=== PATIENT | male | born 1935 | race African-American/Black ===

== ENCOUNTER 2016-07-08 00:08 | Inpatient (IN) ==
--- NOTE | 2016-07-08 01:02 | EKG Report ---
Stationary ECG Study [facility] ER Test Date: 07/08/2016 1:01:09 AM Pat Name: ZANE ALCALA Department: Room: Gender: M Outsole Tacker: KERRIE : 1935 Requested by: Damien Brown Order Number: [id number] Reading MD: SOPHY FITZGERALD Intervals [place] Rate: 59 P: 62 MS: 193 QRS: 12 QRSD: 97 T: 40 QT: 424 QTc: 424 Interpretive Statements SINUS RHYTHM MINIMAL VOLTAGE CRITERIA FOR LVH, CONSIDER NORMAL VARIANT NONSPECIFIC T-WAVE ABNORMALITY Electronically Signed On 07-08-16 08:04:18 REPRESENTATIVE PERSONAL SERVICE by SOPHY FITZGERALD [email or web address]
--- NOTE | 2016-07-08 01:10 | Emergency Department Note ---
Jayy Stock Brooke, am scribing for, and in the presence of, Damien Tavares MD 00 :47. Anusha Stock Charles R, MD, personally performed the services described in this documentation, ascribed by Stephanie Hope in my presence, and it is both accurate and complete . Arrival - Arrival Chief Complaint: Non-Specific Stated Complaint: seizures ED Nursing Triage Note: C/C pt states he had a shaking episode started about 1900. No urinary incontinence. Pt remembers incident. States "he feels bad" Pt is AAOx3 Mode of Arrival: Wheelchair Limitations: No Limitations Source: Patient, Family, RN Notes Reviewed Time Seen by Provider: 07/08/16 00:31 - History of Present Illness HPI Narrative: Patient is a 81 year old male who presents to the ED with c/o "shaking" episode that happened prior to arrival. Patient has a history of seizures. Family member says it looked like he was "shivering from being cold" instead of having a seizure. There was no urinary incontinence following the "shaking" episode. He says he is able to remember everything that happened. Patient says he feels better now. He denies having any fever but says he has had a headache. He says he has been unable to sleep at night but says he gets a little sleep during the day. Patient also complains of bilateral leg pain and says he recently had shingles. He says his left leg is "stinging" with the sheet over it. Family member says Patient has not been "talking out of his head." Patient has PMHx of cerebrovascular disease, HTN, anxiety, CVA, TIA, dementia, diabetes, dyslipidemia, RA, gout, enlarged prostate, GI bleed, polyps, GERD, degenerative disk disease, anemia, and cirrhosis of the liver. His Neurologist is Dr. Paz. Allergies/Adverse Reactions: Allergies Allergy/AdvReac Type Severity Reaction Status Date / Time No Known Allergies Allergy Verified 07/08/16 00:19 Home Medications: Home Medications Medication Instructions Recorded Confirmed Type glipiZIDE [Glucotrol] 5 mg PO DAILY 10/31/14 06/21/16 History Oxybutynin Xl [Ditropan Xl] 10 mg PO DAILY 12/13/15 06/21/16 History Zolpidem Tartrate [Ambien] 10 mg PO BEDTIME 12/13/15 06/21/16 History Carvedilol [Coreg] 12.5 mg PO BID #60 tablet 12/15/15 06/21/16 Rx Amlodipine Besylate 5 mg PO DAILY 12/19/15 06/21/16 History Lisinopril 20 mg PO DAILY 12/23/15 06/21/16 History QUEtiapine [SEROquel] 25 mg PO BID 12/23/15 06/21/16 History Furosemide Tab [Lasix Tab] 20 mg PO BID DIURETIC 02/06/16 06/21/16 History Aspirin EC Tab 81 mg PO DAILY tablet 02/20/16 06/21/16 Rx Meloxicam [Mobic] 7.5 mg PO DAILY 04/12/16 06/21/16 History OXcarbazepine [Oxcarbazepine] 300 mg PO BID 04/12/16 06/21/16 History LORazepam TAB [Ativan Tab] 0.5 mg PO BID #60 tablet 04/13/16 06/21/16 Rx Donepezil HCl 10 mg PO BEDTIME 06/21/16 06/21/16 History HYDROcodone/ACETAMIN 5-325 [[place] 1 tablet PO Q6H #14 tablet 06/21/16 Rx 5-325] levETIRAcetam TAB [Keppra Tab] 500 mg PO QAM 06/21/16 06/21/16 History Review of System - Review of System 12 point system: reviewed and no additional remarkable complaints except as stated - Review of System Constitutional: Absent: fever Respiratory: Absent: respiratory distress Musculoskeletal: Present: other (bilateral leg pain) Skin: Absent: rash Neurological: Present: headache, other ("shaking" episode) Medical,Surgical,& Family Hx - Medical History Cardio: History of: Cerebrovascular Disease, Hypertension Psychological: History of: Anxiety Disorders Neurology: History of: Cerebrovascular Accident (NO DEFECITS), Dementia, Seizures, TIA HEENT: History of: Eye Problem (cataracts) Endocrine: History of: Diabetes Mellitus (IDDM), Diabetes Mellitus (NIDDM), Dyslipidemia No history of: Thyroid Disorder Rheumatology: History of;: Gout, Rheumatoid Arthritis, Rheumatological Problems Respiratory: History of: Respiratory Problems No history of: Asthma, COPD Genitourinary: History of: Prostate Problems (enlarged) Gastrointestinal: History of: GERD (stricture), Gastrointestinal Bleed, Polyps, GI Problems (hiatal hernia) Musculoskeletal: History of: Degenerative Disk Disease Hematology: History of: Anemia, Bleeding Problems (gi bleed) Other: No history of: HIV - Surgical History Cardiac Surgeries: Patient Denies: Cardiac Catheterization Neurologic Surgeries: Patient denies: Neurologic Surgery Abdominal Surgeries: Surgical HX of: Colonoscopy, EGD Orthopedic Surgeries: Surgical HX of;: Orthopedic Surgery (DUAL ROTATOR CUFF) - Family History Family History: Reports;: Family Cancer, Family Hypertension (mother), Family Psychiatric Problems (mother had alzheimers) Denies;: Family Anesthesia Reaction, Family Diabetes, Family Heart Disease, Family Stroke - Social History Smoking Status: Never smoker Frequency of Alcohol Use: None Type of Drug Use: None Exam Vital Signs: Vital Signs Temperature 97.4 F L 07/08/16 00:11 Pulse Rate 63 07/08/16 00:11 Respiratory Rate 17 07/08/16 00:44 Blood Pressure 161/98 07/08/16 00:11 O2 Sat by Pulse Oximetry 95 07/08/16 00:11 - General General appearance: alert, in no apparent distress, other (Stiff) - Head Head exam: Present: atraumatic, normocephalic - Eye Eye exam: Present: normal appearance, PERRL, EOMI, other (No eye contact.) - ENT ENT exam: Present: normal exam - Neck Neck exam: Present: normal inspection - Chest Chest inspection: Present: normal inspection, symmetric chest wall rise - Respiratory Respiratory exam: Present: rales (bilateral at the base), rhonchi (bilateral at the base) - Cardiovascular Cardiovascular exam: Present: regular rate, normal rhythm, normal heart sounds - Abdominal Exam Abdominal exam: Present: distention (bloating). Absent: soft, tenderness - Extremities Exam Extremities exam: Present: other (bilateral leg pain from post herpertic shingles.) - Back Exam Back exam: Present: normal inspection - Neurological Exam Neurological exam: Present: alert, oriented X3 - Psychiatric Psychiatric exam: Present: flat affect - Skin Skin exam: Present: warm, dry, intact, normal color Course - Reevaluation(s) Reevaluation #1: Patient reevaluated was having some jerking spells twitching eyelids but alert and oriented he says it makes his body for he's got pressure and he can't move patient does have some seizure-like activity Time: 02:09 - Consultations Consultation #1: Dr. Chun will admit patient Time: 02:09 Results - Labs CBC & BMP: 07/08/16 00:52 07/08/16 00:52 Lab Results: I have reviewed the patients labs Disposition Clinical Impression: Seizure, Debility, Alzheimer's dementia with behavioral disturbance, Generalized seizure, Dementia Case discussed with: patient, patient's family Disposition: Still a Patient Condition: Stable Time of Disposition: 02:14
[2016-07-08 01:24] LABS: Ammonia 31 UMOL/L (11-32)
[2016-07-08 01:29] LABS: Troponin I Only < 0.015 NG/ML (0.00-0.045)
[2016-07-08 01:30] LABS: Alanine Aminotransferase 22 U/L (16-61); Albumin 3.6 G/DL (3.4-5.0); Alkaline Phosphatase 124 U/L (45-117); Aspartate Amino Transferase 22 U/L (0-37); Bilirubin,Total < 0.39 MG/DL (0.2-1.0); Blood Urea Nitrogen 13 MG/DL (7-18); Calcium 8.7 MG/DL (8.5-10.1); Glucose 154 MG/DL (74-106); Magnesium 2.1 MG/DL (1.8-2.4); Osmolality,Calculated 296.3 MOS/KG (273-304); Potassium 3.9 MMOL/L (3.5-5.1); Sodium 148 MMOL/L (136-145); Total Protein 6.7 G/DL (6.4-8.3)
[2016-07-08 01:32] LABS: Basophils # 0.1 10*3/uL (0.0-0.2); Basophils % 1.1 % (0.0-0.8); Eosinophils # 0.1 10*3/uL (0.0-0.87); Hematocrit 36.1 VOL% (42.0-52.0); Hemoglobin 11.2 GM/DL (14.0-18.0); Immature Granulocytes % 0.9 %; Immature Granulocytes Absolute 0.05 #; Lymphocytes # 2.4 10*3/uL (1.4-4.0); Lymphocytes % 43.3 % (21.2-54.2); Mean Corpuscular Hemoglobin 26 PG (27-34); Mean Corpuscular Volume 83.8 FL (87-102); Mean Platelet Volume 11.4 FL (9.6-12.0); Monocytes # 0.6 10*3/uL (0.11-0.8); Monocytes % 11.4 % (1.7-12.7); Neutrophils # 2.2 10*3/uL (1.4-7.4); Neutrophils % 41.3 % (38.7-73.9); Platelet Count 203 T/CUMM (130-400); Red Blood Count 4.31 MC/CUMM (3.8-5.5); Red Cell Distribution Width 14.9 % (9.3-17.3); White Blood Count 5.4 T/CUMM (4-12)
[2016-07-08 01:59] LABS: Apearance,Urine CLEAR (Clear); Bilirubin,Urine Negative (Negative); Blood, Urine Negative (Negative); Glucose,Urine (UA) Negative (Negative); Hyaline Casts,Urine 3 /LPF (0-3); Ketones,Urine Negative (Negative); Mucus,Urine Occasional /LPF (Occasional); Nitrite,Urine Negative (Negative); Protein,Urine Negative; Squamous Epithelial Cell,Urine Occasional /HPF (0-10); Urine Color Yellow (Yellow); Urine Specific Gravity 1.017 (1.001-1.035); Urine Urobilinogen < 2.0 EU/DL (0.2-1.0)
[2016-07-08 02:07] LABS: Barbiturates Screen,Urine Negative (Negative); Benzodiazepines Screen,Urine Negative (Negative); Cannabinoid Screen,Urine Negative (Negative); Opiate Screen,Urine Positive (Negative); Phencyclidine Screen,Urine Negative (Negative)
[2016-07-08] MEDS ORDERED: LORazepam 2 MG/1 ML VIAL IV STA (02:08)
[2016-07-08] MEDS ORDERED: LORazepam 2 MG/1 ML VIAL ONE (02:08)
[2016-07-08] MEDS ORDERED: levETIRAcetam 500 MG/5 ML VIAL IV ONE (02:38)
[2016-07-08] MEDS ORDERED: BISACODYL 5 MG TABLET PO PRN (03:25)
[2016-07-08] MEDS ORDERED: MORPHINE 2 MG/1 ML SYRINGE IV PRN (03:25)
[2016-07-08] MEDS ORDERED: ONDANSETRON 4 MG/2 ML VIAL IV PRN (03:25)
[2016-07-08] MEDS ORDERED: GLUCAGON 1 MG VIAL IM PRN (03:25)
[2016-07-08] MEDS ORDERED: DEXTROSE 50% 25 GM/50 ML VIAL IV PRN (03:25)
[2016-07-08] MEDS ORDERED: ACETAMINOPHEN 325 MG TABLET PO PRN (03:25)
--- NOTE | 2016-07-08 03:27 | Hospitalist History & Physical ---
Assessment and Plan (1) Seizure Status: Acute Current Visit: Yes (2) Dementia Status: Acute Current Visit: Yes (3) Type 2 diabetes mellitus Status: Acute Current Visit: Yes (4) Hypertension Status: Acute Assessment and plan: Plan: 07/08: Patient's been loaded with seizure medication, will add Dilantin. Likely needs EEG. We'll also need neuro evaluation. CT brain negative. May consider MRI. When necessary Ativan for seizure activity Current Visit: Yes History of Present Illness Chief complaint: seizure activity History of present illness: Mr. De Jesus is a 81 year old male with history of seizure, diabetes, hypertension, who is here with reported seizure activity around 7 p.m. He describes it as shaking episodes and feeling like he's "about to go out." He does not lose consciousness. No tongue biting, no bowel or bladder incontinence. He states he's been on his usual seizure medication. He says he can feel himself tightening up and then "shaking," and prior to tonight he states he has not had anything like this in about 3 months. He denies chest pain, headache, shortness of breath or abdominal pain. No fever or chills. Home Medications Medication Instructions Recorded Confirmed Type glipiZIDE [Glucotrol] 5 mg PO DAILY 10/31/14 06/21/16 History Oxybutynin Xl [Ditropan Xl] 10 mg PO DAILY 12/13/15 06/21/16 History Zolpidem Tartrate [Ambien] 10 mg PO BEDTIME 12/13/15 06/21/16 History Carvedilol [Coreg] 12.5 mg PO BID #60 tablet 12/15/15 06/21/16 Rx Amlodipine Besylate 5 mg PO DAILY 12/19/15 06/21/16 History Lisinopril 20 mg PO DAILY 12/23/15 06/21/16 History QUEtiapine [SEROquel] 25 mg PO BID 12/23/15 06/21/16 History Furosemide Tab [Lasix Tab] 20 mg PO BID DIURETIC 02/06/16 06/21/16 History Aspirin EC Tab 81 mg PO DAILY tablet 02/20/16 06/21/16 Rx Meloxicam [Mobic] 7.5 mg PO DAILY 04/12/16 06/21/16 History OXcarbazepine [Oxcarbazepine] 300 mg PO BID 04/12/16 06/21/16 History LORazepam TAB [Ativan Tab] 0.5 mg PO BID #60 tablet 04/13/16 06/21/16 Rx Donepezil HCl 10 mg PO BEDTIME 06/21/16 06/21/16 History HYDROcodone/ACETAMIN 5-325 [[place] 1 tablet PO Q6H #14 tablet 06/21/16 Rx 5-325] levETIRAcetam TAB [Keppra Tab] 500 mg PO QAM 06/21/16 06/21/16 History Allergies Allergy/AdvReac Type Severity Reaction Status Date / Time No Known Allergies Allergy Verified 07/08/16 00:19 Medical,Surgical,& Family Hx - Medical History Cardio: History of: Cerebrovascular Disease, Hypertension Psychological: History of: Anxiety Disorders Neurology: History of: Cerebrovascular Accident (NO DEFECITS), Dementia, Seizures, TIA HEENT: History of: Eye Problem (cataracts) Endocrine: History of: Diabetes Mellitus (IDDM), Diabetes Mellitus (NIDDM), Dyslipidemia No history of: Thyroid Disorder Rheumatology: History of;: Gout, Rheumatoid Arthritis, Rheumatological Problems Respiratory: History of: Respiratory Problems No history of: Asthma, COPD Genitourinary: History of: Prostate Problems (enlarged) Gastrointestinal: History of: GERD (stricture), Gastrointestinal Bleed, Polyps, GI Problems (hiatal hernia) Musculoskeletal: History of: Degenerative Disk Disease Hematology: History of: Anemia, Bleeding Problems (gi bleed) Other: No history of: HIV - Surgical History Cardiac Surgeries: Patient Denies: Cardiac Catheterization Neurologic Surgeries: Patient denies: Neurologic Surgery Abdominal Surgeries: Surgical HX of: Colonoscopy, EGD Orthopedic Surgeries: Surgical HX of;: Orthopedic Surgery (DUAL ROTATOR CUFF) - Family History Family History: Reports;: Family Cancer, Family Hypertension (mother), Family Psychiatric Problems (mother had alzheimers) Denies;: Family Anesthesia Reaction, Family Diabetes, Family Heart Disease, Family Stroke - Social History Smoking Status: Never smoker Frequency of Alcohol Use: None Type of Drug Use: None Marital Status: Unknown Functional capacity: independent ambulation Review of systems: A 12 point review of systems is negative except as specified in the HPI Exam - Constitutional Vitals: Period Temp Pulse Resp BP Sys/Miles Pulse Ox Last 24 Hr 97.3 F-97.4 F 62-63 16-17 161-161/98-98 95 Exam: EXAM: CONSTITUTIONAL: non toxic, NAD, drowsy but arousable HEENT: NC, AT, OP benign, RYANN, EOMI CV: RRR no m/g/r RESP: clear B/L, no w/r/r GI: abd soft, NT, ND, +bowel sounds INTEGUMENTARY: no lesions or rash EXTREMITIES: no c/c/e NEURO: no focal deficits, slight tremor bilateral upper extremities PSYCH: Drowsy but arousable, oriented, participates with the exam Results - Labs CBC & BMP: 07/08/16 00:52 07/08/16 00:52 Lab Results: I have reviewed the past 24 hour labs - EKG EKG shows: sinus rhythm - Diagnostic Findings Procedure: Chest x-ray: image reviewed by me, report reviewed by me, CT - chest : image reviewed by me, report reviewed by me
[2016-07-08] MEDS: PHENYTOIN 100 MG/2 ML VIAL IV SCH ×2 (04:57→10:57)
[2016-07-08 06:26] LABS: Basophils # 0.1 10*3/uL (0.0-0.2); Basophils % 1.2 % (0.0-0.8); Eosinophils # 0.1 10*3/uL (0.0-0.87); Eosinophils % 2.1 % (0.00-10.9); Hematocrit 35.6 VOL% (42.0-52.0); Hemoglobin 10.9 GM/DL (14.0-18.0); Immature Granulocytes % 0.6 %; Immature Granulocytes Absolute 0.03 #; Lymphocytes # 2.1 10*3/uL (1.4-4.0); Lymphocytes % 43.5 % (21.2-54.2); Mean Corpuscular HGB Conc 30.6 GM/DL (32-36); Mean Corpuscular Hemoglobin 25 PG (27-34); Mean Platelet Volume 11.1 FL (9.6-12.0); Monocytes # 0.6 10*3/uL (0.11-0.8); Monocytes % 11.3 % (1.7-12.7); Neutrophils % 41.3 % (38.7-73.9); Platelet Count 207 T/CUMM (130-400); Red Blood Count 4.29 MC/CUMM (3.8-5.5); White Blood Count 4.9 T/CUMM (4-12)
--- NOTE | 2016-07-08 06:29 | CT Report ---
CT head/brain wo con Indication: Seizure Comparison: CT brain dated April 13, 2016 Technique: Multiple axial tomographic images of the brain were obtained without use of intravenous contrast. Findings: Midline structures are nondisplaced. There is no acute intracranial hemorrhage or evidence of hydrocephalus. Age-related volume loss present. Periventricular and subcortical hypoattenuation noted which is nonspecific but consistent with chronic microvascular ischemic change. Old lacunar infarct adjacent to the left caudate head. Atherosclerotic calcifications present. Paranasal sinuses and mastoid air cells are clear. IMPRESSION: No acute intracranial abnormality demonstrated. Chronic findings as detailed above. Preliminary report issued by virtual radiology. PROCEDURE INTERPRETED AT [facility] DEPARTMENT OF RADIOLOGY Final Report Signed by: Dr Evelio Nichols
--- NOTE | 2016-07-08 07:08 | XRay Report ---
XR chest 1V portable Indication: Shaking and chills Comparison: Chest x-ray dated June 21, 2016 Technique: Single frontal view of the chest Findings: Cardiomediastinal silhouette is stable in configuration. There is mild hazy opacification the bilateral lung bases which may reflect atelectasis or early consolidative process such as pneumonia or pulmonary edema. Osseous and surrounding soft tissue structures appear grossly unchanged. IMPRESSION: As above. PROCEDURE INTERPRETED AT [facility] DEPARTMENT OF RADIOLOGY Final Report Signed by: Dr Evelio Nichols
[2016-07-08 07:09] LABS: Albumin 3.4 G/DL (3.4-5.0); Bilirubin,Total 0.4 MG/DL (0.2-1.0); Calcium 8.7 MG/DL (8.5-10.1); Magnesium 2.1 MG/DL (1.8-2.4); Osmolality,Calculated 294.4 MOS/KG (273-304); Potassium 3.9 MMOL/L (3.5-5.1); Thyroid Stimulating Hormone 2.41 uIU/ml (0.358-3.74); Total Protein 6.5 G/DL (6.4-8.3)
[2016-07-08] MEDS: INSULIN REGULAR 100 UNIT/ML SUBCUT SCH ×3 (08:42→17:09)
[2016-07-08] MEDS ORDERED: QUEtiapine 25 MG TABLET PO SCH (09:00)
[2016-07-08] MEDS ORDERED: levETIRAcetam 500 MG TABLET PO SCH ×2 (09:00→21:00)
[2016-07-08] MEDS ORDERED: OXcarbazepine 300 MG TABLET PO SCH (09:00)
[2016-07-08] MEDS: ASPIRIN EC 81 MG TABLET PO SCH (09:14)
[2016-07-08] MEDS: glipiZIDE 5 MG TABLET PO SCH (09:15)
[2016-07-08] MEDS: CARVEDILOL 12.5 MG TABLET PO SCH ×2 (09:15→21:23)
[2016-07-08] MEDS: FUROSEMIDE 20 MG TABLET PO SCH ×2 (09:15→17:09)
[2016-07-08] MEDS: amLODIPine 5 MG TABLET PO SCH (09:15)
[2016-07-08] MEDS: LISINOPRIL 20 MG TABLET PO SCH (09:15)
[2016-07-08] MEDS: ENOXAPARIN 40 MG/0.4 ML SYRINGE SUBCUT SCH (09:16)
[2016-07-08] MEDS: LORazepam 0.5 MG TABLET PO SCH ×2 (09:16→21:24)
[2016-07-08] MEDS: PANTOPRAZOLE 40 MG TABLET PO SCH (09:16)
[2016-07-08] MEDS: OXYBUTYNIN XL 10 MG TABLET PO SCH (10:58)
--- NOTE | 2016-07-08 14:20 | Hospitalist Progress Note ---
Assessment and Plan (1) Cirrhosis Status: Chronic Assessment and plan: Established November 2015 with initiation of therapy, subsequently discontinued by current medication list Current Visit: Yes Qualifiers: Hepatic cirrhosis type: alcoholic cirrhosis (2) Seizure Status: Chronic Assessment and plan: Focal motor apparently rarely if at all generalized. Medication adjustments done January 2016. Current Visit: Yes (3) Dementia Status: Chronic Current Visit: Yes Qualifiers: Dementia type: associated with alcoholism Hospitalist: Subjective Interval history: 81 yo male with alcoholic cirrhosis and focal seizure disorder. Admitted in January with status, EEG confirmed left hemispheric focus and his Keppra was doubled and Trileptal was added. His family reports compliance however admitted with motor activity thought to be seizure activity. Through today has had stable vital signs. He appears this afternoon to have some myoclonic jerking, especially noticable with movement. Exam - Constitutional Vitals: Period Temp Pulse Resp BP Sys/Miles Pulse Ox Last 24 Hr 97.6 F-98.1 F 59-63 17-20 136-152/82-96 96-100 General appearance: over weight - Respiratory Respiratory exam: Present: clear to auscultation bilaterally. Absent: rales, rhonchi, wheezes - Cardiovascular Cardiovascular exam: Present: regular rate and rhythm - GI/Abdominal GI/Abdominal exam: Present: normal bowel sounds. Absent: organomegaly, tenderness - Extremities Exam Extremities exam: Absent: edema - Neurological Exam Neurological exam: Present: other (myoclonic jerking). Absent: alert Results - Labs CBC & BMP: 07/08/16 06:06 07/08/16 06:06 - Diagnostic Findings Procedure: Chest x-ray: image reviewed by me ([place] rotated with expiration, no gross infiltates), CT: report reviewed by me (head stable since January)
--- NOTE | 2016-07-08 14:34 | Neurology Consult Note ---
History of Present Illness History of present illness: Mr. De Jesus is a 81 year old male with history of seizure, diabetes, hypertension, who is here with questionable seizure activity around 7 p.m last night. According to the he just shakes all over whenever he tried to do something. No loss of consciousness reported. No tongue biting, no bowel or bladder incontinence. He states he's been on his usual seizure medication. He is supposed to be on Trileptal as well as Keppra however Dilantin being admitted as well. He says he can feel himself tightening up and then "shaking, " and prior to tonight he states he has not had anything like this in about 3 months. He denies chest pain, headache, shortness of breath or abdominal pain. No fever or chills. Home Medications Medication Instructions Recorded Confirmed Type glipiZIDE [Glucotrol] 5 mg PO DAILY 10/31/14 07/08/16 History Oxybutynin Xl [Ditropan Xl] 10 mg PO DAILY 12/13/15 07/08/16 History Zolpidem Tartrate [Ambien] 10 mg PO BEDTIME 12/13/15 07/08/16 History Carvedilol [Coreg] 12.5 mg PO BID #60 tablet 12/15/15 07/08/16 Rx Amlodipine Besylate 5 mg PO DAILY 12/19/15 07/08/16 History Lisinopril 20 mg PO DAILY 12/23/15 07/08/16 History QUEtiapine [SEROquel] 25 mg PO BID 12/23/15 07/08/16 History Furosemide Tab [Lasix Tab] 20 mg PO BID DIURETIC 02/06/16 07/08/16 History Aspirin EC Tab 81 mg PO DAILY tablet 02/20/16 07/08/16 Rx Meloxicam [Mobic] 7.5 mg PO DAILY 04/12/16 07/08/16 History OXcarbazepine [Oxcarbazepine] 450 mg PO BID 04/12/16 07/08/16 History LORazepam TAB [Ativan Tab] 0.5 mg PO BID #60 tablet 04/13/16 07/08/16 Rx Donepezil HCl 10 mg PO BEDTIME 06/21/16 07/08/16 History levETIRAcetam TAB [Keppra Tab] 750 mg PO QAM 06/21/16 07/08/16 History Hydrocodone/Acetaminophen 1 each PO Q12HR PRN 07/08/16 07/08/16 History [Hydrocodon-Acetaminoph 7.5-325] Allergies Allergy/AdvReac Type Severity Reaction Status Date / Time No Known Allergies Allergy Verified 07/08/16 00:19 12 point system: reviewed and no additional remarkable complaints except as stated Medical,Surgical,& Family Hx - Medical History Cardio: History of: Cerebrovascular Disease, Hypertension Psychological: History of: Anxiety Disorders, Psychiatric/Substance Abuse Tx ( ETOH abuse) No history of: Psychiatric Problems Neurology: History of: Cerebrovascular Accident (NO DEFECITS), Dementia, Seizures, TIA HEENT: History of: Eye Problem (cataracts) Endocrine: History of: Diabetes Mellitus (IDDM), Diabetes Mellitus (NIDDM), Dyslipidemia No history of: Thyroid Disorder Rheumatology: History of;: Gout, Rheumatoid Arthritis, Rheumatological Problems Respiratory: History of: Respiratory Problems No history of: Asthma, COPD Genitourinary: History of: Prostate Problems (enlarged) Gastrointestinal: History of: GERD (stricture), Gastrointestinal Bleed, Polyps, GI Problems (hiatal hernia) Musculoskeletal: History of: Degenerative Disk Disease Hematology: History of: Anemia, Bleeding Problems (gi bleed) Other: No history of: Cancer, HIV - Surgical History Cardiac Surgeries: Patient Denies: Cardiac Catheterization Thoracic Surgeries: Patient denies;: Organ Transplant Neurologic Surgeries: Patient denies: Neurologic Surgery Abdominal Surgeries: Surgical HX of: Colonoscopy, EGD Orthopedic Surgeries: Surgical HX of;: Orthopedic Surgery (DUAL ROTATOR CUFF) - Family History Family History: Reports;: Family Cancer, Family Hypertension (mother), Family Psychiatric Problems (mother had alzheimers) Denies;: Family Anesthesia Reaction, Family Diabetes, Family Heart Disease, Family Stroke - Social History Smoking Status: Never smoker Frequency of Alcohol Use: None Type of Drug Use: None Exam - Constitutional Vitals: Period Temp Pulse Resp BP Sys/Miles Pulse Ox Last 24 Hr 97.6 F-98.1 F 59-63 17-20 136-152/82-96 96-100 Exam: GENERAL: Patient is in no acute distress. NECK: Neck is supple. There is no JVD. No carotid bruits present. No thyroid masses. CVS: First and second heart sounds are normal. There is no S3 present. Regular rate and rhythm. RESPIRATORY: Lungs are clear to auscultation without any rales or rhonchi. ABDOMEN: Soft and non-tender. Bowel sounds are present. There is no hepatosplenomegaly. EXT: There is no palpable edema. Peripheral pulses are present. Skin: No rashes Central Nervous system: General: Alert, awake Speech: Fluent Comprehension: Intact and normal Facial expressions: Normal Cranial Nerves: CN1/Olfactory: Normal CN II/ Optic: Normal, Visual Guillen unreliable CN III, and : RYANN & EOMI CN V: Normal & intact CN VII: face is symmetric CNVIII: Normal CN XI/X/XI/XII: Intact and Normal Motor: Bulk and Tone is normal. Bilateral asterixis Strength in the right 3/5 Strength in the left 3/5 Sensory: Grossly intact for all the modalities of PP, LT and temp sense Reflexes: 1+ and symmetrical Cerebellar function: Cannot be assessed Gait: Cannot be assessed Results - Labs CBC & BMP: 07/08/16 06:06 07/08/16 06:06 Assessment and Plan (1) Asterixis Status: Acute Assessment and plan: The shaking described by the family is likely due to present asterixis. Etiology could be metabolic in nature. Other differential would include medication side effects. Current Visit: Yes (2) Seizure Status: Chronic Assessment and plan: No evidence of recurrent seizures. Stop Dilantin, Aricept and Keppra Change Trileptal to 450 mg twice a day Change Seroquel to 25 mg at bedtime only Current Visit: Yes
[2016-07-08] MEDS ORDERED: DONEPEZIL 10 MG TABLET PO SCH (21:00)
[2016-07-08] MEDS: OXcarbazepine 300 MG TABLET PO SCH (21:22)
[2016-07-08] MEDS: QUEtiapine 25 MG TABLET PO SCH (21:24)
[2016-07-09] MEDS: INSULIN REGULAR 100 UNIT/ML SUBCUT SCH ×5 (00:38→20:12)
[2016-07-09 06:58] LABS: Calcium 8.9 MG/DL (8.5-10.1); Osmolality,Calculated 291.7 MOS/KG (273-304)
--- NOTE | 2016-07-09 09:30 | Hospitalist Progress Note ---
Assessment and Plan (1) Cirrhosis Status: Chronic Assessment and plan: Established November 2015 with initiation of therapy, subsequently discontinued by current medication list. Ammonia level is back up and current complaint may reflect asterixis Current Visit: Yes Qualifiers: Hepatic cirrhosis type: alcoholic cirrhosis (2) Seizure Status: Chronic Assessment and plan: Focal motor apparently rarely if at all generalized. Medication adjustments done January 2016, and adjusted 07/08/2016 Current Visit: Yes (3) Dementia Status: Chronic Current Visit: Yes Qualifiers: Dementia type: associated with alcoholism Hospitalist: Subjective Interval history: 81 yo male with history of alcohol abuse with dementia and seizure disorder with EEG and clinical documentation of focal partial seizure on last admission. Admitted with "jerking", ammonia level 52 apparently no active therapy at home. Neurology does not believe that current is seizure activity and medications adjusted to Trileptal 450 mg BID and Seroquel 25 mg HS. Vitals stable overnight. Exam - Constitutional Vitals: Period Temp Pulse Resp BP Sys/Miles Pulse Ox Last 24 Hr 97.5 F-98.6 F 56-69 18-20 126-156/75-94 96-100 General appearance: over weight - Respiratory Respiratory exam: Present: clear to auscultation bilaterally. Absent: rales, rhonchi, wheezes - Cardiovascular Cardiovascular exam: Present: regular rate and rhythm - GI/Abdominal GI/Abdominal exam: Present: normal bowel sounds - Extremities Exam Extremities exam: Absent: edema - Neurological Exam Neurological exam: Present: alert. Absent: oriented X3 Results - Labs CBC & BMP: 07/08/16 06:06 07/09/16 06:00 Labs: ammonia 52
[2016-07-09] MEDS ORDERED: TUBERCULIN SKIN TEST 0.1 ML SYRINGE INTRADERM ONE (10:00)
[2016-07-09] MEDS: LACTULOSE 20 GM/30 ML UDCUP PO SCH ×2 (10:10→20:04)
[2016-07-09] MEDS: OXcarbazepine 300 MG TABLET PO SCH ×2 (10:11→20:04)
[2016-07-09] MEDS: PANTOPRAZOLE 40 MG TABLET PO SCH (10:11)
[2016-07-09] MEDS: OXYBUTYNIN XL 10 MG TABLET PO SCH (10:11)
[2016-07-09] MEDS: LISINOPRIL 20 MG TABLET PO SCH (10:12)
[2016-07-09] MEDS: FUROSEMIDE 20 MG TABLET PO SCH ×2 (10:12→17:04)
[2016-07-09] MEDS: LORazepam 0.5 MG TABLET PO SCH ×2 (10:13→20:04)
[2016-07-09] MEDS: ASPIRIN EC 81 MG TABLET PO SCH (10:17)
[2016-07-09] MEDS: CARVEDILOL 12.5 MG TABLET PO SCH ×2 (10:20→20:04)
[2016-07-09] MEDS: amLODIPine 5 MG TABLET PO SCH (10:20)
[2016-07-09] MEDS: glipiZIDE 5 MG TABLET PO SCH (10:20)
[2016-07-09] MEDS: ENOXAPARIN 40 MG/0.4 ML SYRINGE SUBCUT SCH (10:20)
--- NOTE | 2016-07-09 13:46 | Case Mgmt Physician Query Form ---
TB Signs and Symptoms Screening ([place]) INSTRUCTIONS: To be completed annually on residents/staff with a significant Tuberculin Skin Test (TST) upon admission/hire or a prior significant TST. To be completed on all staff at hire. Please respond to each listed symptom with an (X) in either the "YES" or "NO" box. Do you currently have any of the following symptoms: YES NO ( ) ( x) A cough If yes, is it: ( ) Productive ( ) Non- productive ( ) ( x) Hemoptysis (spitting up blood) ( ) ( x) Chest pains ( ) ( x) Weight Loss ( ) ( x) Fever ( ) ( x) Night Sweats ( ) ( x) Weakness ( ) ( x) Loss of Appetite ( ) ( x) Difficulty Breathing If you answered YES" to any of the above questions, how long have symptoms been present? Comments: If you have any questions, please contact me . Thank you, Shanice MCKAY Email: [email or web address] [facility]
[2016-07-09] MEDS: QUEtiapine 25 MG TABLET PO SCH (20:12)
--- NOTE | 2016-07-10 10:15 | Hospitalist Progress Note ---
Assessment and Plan (1) Cirrhosis Status: Chronic Assessment and plan: Established November 2015 with initiation of therapy, subsequently discontinued by current medication list. Ammonia level is back up and current complaint appears to reflect asterixis Current Visit: Yes Qualifiers: Hepatic cirrhosis type: alcoholic cirrhosis (2) Seizure Status: Chronic Assessment and plan: Focal motor apparently rarely if at all generalized. Medication adjustments done January 2016, and adjusted 07/08/2016 Current Visit: Yes (3) Dementia Status: Chronic Current Visit: Yes Qualifiers: Dementia type: associated with alcoholism Hospitalist: Subjective Interval history: 81 yo male with history of alcohol abuse with dementia and seizure disorder ( well documented on last admission including positive EEG with episodes) who was admitted with "jerking". Had been on active treatment for elevated ammonia levels in the past but had come to be off treatment. Ammonia level was elevated and he was resumed on lactulose with resolution of movement abnormality and improved mentation. Anticipated for placement. Exam - Constitutional Vitals: Period Temp Pulse Resp BP Sys/Miles Pulse Ox Last 24 Hr 97.2 F-99.3 F 56-65 18-20 123-149/77-87 98-100 General appearance: over weight - Respiratory Respiratory exam: Present: clear to auscultation bilaterally. Absent: rales, rhonchi, wheezes - Cardiovascular Cardiovascular exam: Present: regular rate and rhythm - GI/Abdominal GI/Abdominal exam: Present: normal bowel sounds. Absent: ascites - Extremities Exam Extremities exam: Absent: edema - Neurological Exam Neurological exam: Present: alert Results - Labs CBC & BMP: 07/08/16 06:06 07/09/16 06:00
[2016-07-10] MEDS: LACTULOSE 20 GM/30 ML UDCUP PO SCH ×2 (10:53→21:42)
[2016-07-10] MEDS: ENOXAPARIN 40 MG/0.4 ML SYRINGE SUBCUT SCH (10:53)
[2016-07-10] MEDS: OXcarbazepine 300 MG TABLET PO SCH ×2 (10:54→21:42)
[2016-07-10] MEDS: amLODIPine 5 MG TABLET PO SCH (10:54)
[2016-07-10] MEDS: OXYBUTYNIN XL 10 MG TABLET PO SCH (10:54)
[2016-07-10] MEDS: ASPIRIN EC 81 MG TABLET PO SCH (10:54)
[2016-07-10] MEDS: LORazepam 0.5 MG TABLET PO SCH ×2 (10:55→21:42)
[2016-07-10] MEDS: CARVEDILOL 12.5 MG TABLET PO SCH ×2 (10:55→21:42)
[2016-07-10] MEDS: LISINOPRIL 20 MG TABLET PO SCH (10:55)
[2016-07-10] MEDS: PANTOPRAZOLE 40 MG TABLET PO SCH (10:56)
[2016-07-10] MEDS: glipiZIDE 5 MG TABLET PO SCH (10:56)
[2016-07-10] MEDS: FUROSEMIDE 20 MG TABLET PO SCH ×2 (10:56→16:10)
[2016-07-10] MEDS: INSULIN REGULAR 100 UNIT/ML SUBCUT SCH ×4 (10:59→21:43)
[2016-07-10] MEDS: QUEtiapine 25 MG TABLET PO SCH (21:42)
--- NOTE | 2016-07-11 08:44 | Neurology Progress Note ---
Sherman Stock Chassity, am scribing for, and in the presence of, Fadi Paz MD 14 :53. Neurology - PN : Subjective Interval history: Patient seems to be doing better. No more seizures reported. Hand tremors are better. Exam (Progress Note) - Constitutional Vitals: Period Temp Pulse Resp BP Sys/Miles Pulse Ox Last 24 Hr 97.5 F-98.6 F 56-69 18-20 126-156/75-94 96-100 Exam: GENERAL: Patient is in no acute distress. NECK: Neck is supple. There is no JVD. No carotid bruits present. No thyroid masses. CVS: First and second heart sounds are normal. There is no S3 present. Regular rate and rhythm. RESPIRATORY: Lungs are clear to auscultation without any rales or rhonchi. ABDOMEN: Soft and non-tender. Bowel sounds are present. There is no hepatosplenomegaly. EXT: There is no palpable edema. Peripheral pulses are present. Skin: No rashes Central Nervous system: General: Alert, awake Speech: Fluent Comprehension: Intact and normal Facial expressions: Normal Cranial Nerves: CN1/Olfactory: Normal CN II/ Optic: Normal, Visual Guillen unreliable CN III, and : RYANN & EOMI CN V: Normal & intact CN VII: face is symmetric CNVIII: Normal CN XI/X/XI/XII: Intact and Normal Motor: Bulk and Tone is normal. Bilateral asterixis Strength in the right 3/5 Strength in the left 3/5 Sensory: Grossly intact for all the modalities of PP, LT and temp sense Reflexes: 1+ and symmetrical Cerebellar function: Cannot be assessed Gait: Cannot be assessed Results - Labs CBC & BMP: 07/08/16 06:06 07/09/16 06:00 Assessment and Plan (1) Asterixis Status: Acute Assessment and plan: The shaking described by the family is likely due to present asterixis. Etiology could be metabolic in nature. Other differential would include medication side effects. Current Visit: Yes (2) Seizure Status: Acute Assessment and plan: Continue watchful observation. Continue current management. Current Visit: Yes Brandi Stock Aamir, MD, personally performed the services described in this documentation, ascribed by Radha Whitaker in my presence, and it is both accurate and complete .
--- NOTE | 2016-07-11 08:45 | Neurology Progress Note ---
Neurology - PN : Subjective Interval history: Mr. Allison seems to be doing much better. No new problems reported. No more shaking/asterixis anymore. No seizures reported. Exam (Progress Note) - Constitutional Vitals: Period Temp Pulse Resp BP Sys/Miles Pulse Ox Last 24 Hr 97.0 F-98.3 F 58-82 16-18 100-136/62-88 97-100 Exam: GENERAL: Patient is in no acute distress. NECK: Neck is supple. There is no JVD. No carotid bruits present. No thyroid masses. CVS: First and second heart sounds are normal. There is no S3 present. Regular rate and rhythm. RESPIRATORY: Lungs are clear to auscultation without any rales or rhonchi. ABDOMEN: Soft and non-tender. Bowel sounds are present. There is no hepatosplenomegaly. EXT: There is no palpable edema. Peripheral pulses are present. Skin: No rashes Central Nervous system: General: Alert, awake Speech: Fluent Comprehension: Intact and normal Facial expressions: Normal Cranial Nerves: CN1/Olfactory: Normal CN II/ Optic: Normal, Visual Guillen unreliable CN III, and : RYANN & EOMI CN V: Normal & intact CN VII: face is symmetric CNVIII: Normal CN XI/X/XI/XII: Intact and Normal Motor: Bulk and Tone is normal. Bilateral asterixis has resolved completely Strength in the right 3/5 Strength in the left 3/5 Sensory: Grossly intact for all the modalities of PP, LT and temp sense Reflexes: 1+ and symmetrical Cerebellar function: Cannot be assessed Gait: Cannot be assessed Results - Labs CBC & BMP: 07/08/16 06:06 07/09/16 06:00 Assessment and Plan (1) Asterixis Status: Acute Assessment and plan: This has resolved completely. No further intervention needed. Current Visit: Yes (2) Seizure Status: Acute Assessment and plan: Continue Trileptal 450 mg by mouth twice a day. Patient is stable now. Signoff please call when necessary Current Visit: Yes Specialty Discharge - Follow Up or Referrals Follow up with: Fadi Paz MD [Physician] - 1 Month
[2016-07-11] MEDS: ENOXAPARIN 40 MG/0.4 ML SYRINGE SUBCUT SCH (09:20)
[2016-07-11] MEDS: ASPIRIN EC 81 MG TABLET PO SCH (09:21)
[2016-07-11] MEDS: OXcarbazepine 300 MG TABLET PO SCH (09:21)
[2016-07-11] MEDS: FUROSEMIDE 20 MG TABLET PO SCH (09:22)
[2016-07-11] MEDS: PANTOPRAZOLE 40 MG TABLET PO SCH (09:22)
[2016-07-11] MEDS: LISINOPRIL 20 MG TABLET PO SCH (09:22)
[2016-07-11] MEDS: glipiZIDE 5 MG TABLET PO SCH (09:23)
[2016-07-11] MEDS: LACTULOSE 20 GM/30 ML UDCUP PO SCH (09:23)
[2016-07-11] MEDS: CARVEDILOL 12.5 MG TABLET PO SCH (09:23)
[2016-07-11] MEDS: LORazepam 0.5 MG TABLET PO SCH (09:23)
[2016-07-11] MEDS: OXYBUTYNIN XL 10 MG TABLET PO SCH (09:23)
[2016-07-11] MEDS: amLODIPine 5 MG TABLET PO SCH (09:24)
--- NOTE | 2016-07-11 10:06 | Physician Query Form ---
CLICK EDIT DOCUMENT TO SELECT QUERY ANSWER --> OK --> SIGN Coreen Bond RN Clinical Extract Operator W) [phone] (f) [phone] [email or web address] PROVIDERS: Make your selection(s) from the choices in EACH section by typing an "x" and enter comments in the comment section. Please use your independent medical judgment in providing your response. This request does not imply that any particular answer is desired or expected. CLINICAL INDICATORS: (Providers should not edit this section) The medical record has conflicting documentation of acute seizure and chronic seizure. Based on documentation of " Medication adjustments done January 2016 , and adjusted 07/08/2016", pt. started on Trileptal. Based on the above, could you clarify the appropriate diagnosis, if significant , that supports the above abnormalities and additional evaluation, monitoring, and/or treatment rendered: ( ) Pt. treated for acute seizure ( x) Pt. treated for chronic seizure ( x) Other, please specify:with break through seizure activity to include adjustments in medicine. ( ) Clinically unable to determine COMMENTS: Use of terms such as suspected, likely, or probable (associated with a specific diagnosis that is being evaluated, monitored, or treated as if it exists) are acceptable and can be restated in the discharge summary if not ruled out. MTDD
[2016-07-11] MEDS: INSULIN REGULAR 100 UNIT/ML SUBCUT SCH ×2 (11:13→12:00)
[2016-07-11 11:52] VITALS: BP 115/84
--- NOTE | 2016-07-11 12:07 | Discharge Summary ---
Hospital Course - Hospital Course Hospital Course: Mr. De Jesus is a gentleman who has medical conditions include hypertension diabetes history of seizures who presented with evidence of asterixis. The gentleman also had a CT of the head that was unremarkable. The patient had adjustment in his seizure medications to include his Trileptal been increased to 450mg twice a daily after being evaluated by Dr. Paz. The gentleman continued to do well there was no other acute changes. The ammonia level that was initially elevated has now trended down. He has had no fevers or chills. He is awake and alert. Vital signs have been stable. And now he is ready for discharge back to the [facility]. - Time spent with patient Time with patient DS: Greater than 30 minutes Diagnosis - Discharge Diagnosis (1) Asterixis Status: Resolved (2) Alzheimer's dementia with behavioral disturbance Status: Chronic (3) Hypertension Status: Chronic (4) Type 2 diabetes mellitus Status: Chronic (5) Dementia Status: Chronic Specialty Discharge - Follow Up or Referrals Follow up with: Fadi Paz MD [Physician] - 08/05/16 10:45 am Discharge Plan - Discharge Data Disposition: Disch/Xfer to Snf Condition at Discharge: Stable Discharge Diet: advance to your usual diet Activity: resume usual activities as tolerated Hygiene: no restrictions - Discharge Medications New RX: Pantoprazole Tab [Protonix Tab] 40 mg PO DAILY #30 tablet Continue RX: glipiZIDE [Glucotrol] 5 mg PO DAILY RX: Zolpidem Tartrate [Ambien] 10 mg PO BEDTIME RX: Oxybutynin Xl [Ditropan Xl] 10 mg PO DAILY RX: Carvedilol [Coreg] 12.5 mg PO BID #60 tablet RX: Amlodipine Besylate 5 mg PO DAILY RX: Lisinopril 20 mg PO DAILY RX: QUEtiapine [SEROquel] 25 mg PO BID RX: Furosemide Tab [Lasix Tab] 20 mg PO BID DIURETIC RX: Meloxicam [Mobic] 7.5 mg PO DAILY RX: OXcarbazepine [Oxcarbazepine] 450 mg PO BID RX: LORazepam TAB [Ativan Tab] 0.5 mg PO BID #60 tablet RX: Hydrocodone/Acetaminophen [Hydrocodon-Acetaminoph 7.5-325] 1 each PO Q12HR PRN PRN Reason: Pain RX: levETIRAcetam TAB [Keppra Tab] 750 mg PO QAM RX: Donepezil HCl 10 mg PO BEDTIME RX: Aspirin EC Tab 81 mg PO DAILY tablet - Follow Up or Referral Follow Up: Fadi Paz MD [Physician] - 08/05/16 10:45 am - Forms/Instructions Instructions: Non-epileptic Seizures (DC) Additional Discharge Instructions: Follow up with nursing facility Exam - Constitutional Vitals: Period Temp Pulse Resp BP Sys/Miles Pulse Ox Last 24 Hr 97.0 F-98.3 F 53-82 16-20 100-134/62-88 97-100 General appearance: normal weight - Head Head exam: Present: normal inspection - Eye Eye exam: Present: EOMI Pupils: Present: RYANN - Neck Neck exam: Present: normal inspection - Respiratory Respiratory exam: Present: clear to auscultation bilaterally - Cardiovascular Cardiovascular exam: Present: regular rate and rhythm - GI/Abdominal GI/Abdominal exam: Present: normal bowel sounds - Neurological Exam Neurological exam: Present: alert - Skin Skin exam: Present: normal color Discharge Results Labs on day of discharge: Labs from last 24 hours 07/10/16 07/10/16 07/10/16 20:02 16:18 11:49 POC Glucose 150 H 185 H 167 H DS: Provider Date of admission: 07/08/16 03:25 Primary care physician: Michael Zamora MD Attending physician on admission: Yayo Rojo MD Consults: 07/09/16 08:48 Consult to Physical Therapy [CONS] Routine Reason for Physical Therapy: Evaluate and Treat Discharging clinician: Bulmaro Lindsey Jr., MD
--- NOTE | 2016-07-11 12:30 | Physician Query Form ---
CLICK EDIT DOCUMENT TO SELECT QUERY ANSWER --> OK --> SIGN Coreen Bond RN Clinical Reproduction Specialist W) [phone] (f) [phone] [email or web address] PROVIDERS: Make your selection(s) from the choices in EACH section by typing an "x" and enter comments in the comment section. Please use your independent medical judgment in providing your response. This request does not imply that any particular answer is desired or expected. CLINICAL INDICATORS: (Providers should not edit this section) Based on documentation of "chronic seizure and breakthrough seizure activity". Pt. has a history of CVA. Based on the above, could you clarify the appropriate diagnosis, if significant , that supports the above abnormalities and additional evaluation, monitoring, and/or treatment rendered: (x ) Seizure related to previous CVA ( ) Seizure unrelated to previous CVA ( ) Other, please specify: ( ) Clinically unable to determine COMMENTS: Use of terms such as suspected, likely, or probable (associated with a specific diagnosis that is being evaluated, monitored, or treated as if it exists) are acceptable and can be restated in the discharge summary if not ruled out. MARCIND
== END 2016-07-11 13:45 | DRG 57 ==
LOC: N.ED 00:08 → N.EDINP 03:25 → N.5E 03:59
PROVIDERS: ADMIT Internal Medicine Cardiovascular Disease; ATTEND Internal Medicine Cardiovascular Disease

== ENCOUNTER 2016-12-16 11:11 | Inpatient (IN) ==
[2016-12-16 11:46] LABS: Basophils # 0.1 10*3/uL (0.0-0.2); Basophils % 0.9 % (0.0-0.8); Eosinophils # 0.1 10*3/uL (0.0-0.87); Eosinophils % 1.5 % (0.00-10.9); Hematocrit 35.6 VOL% (42.0-52.0); Hemoglobin 11.6 GM/DL (14.0-18.0); Immature Granulocytes Absolute 0.06 #; Lymphocytes # 2.4 10*3/uL (1.4-4.0); Lymphocytes % 40.4 % (21.2-54.2); Mean Corpuscular HGB Conc 32.6 GM/DL (32-36); Mean Corpuscular Hemoglobin 26 PG (27-34); Mean Platelet Volume 10.4 FL (9.6-12.0); Monocytes # 0.5 10*3/uL (0.11-0.8); Monocytes % 8.7 % (1.7-12.7); Neutrophils # 2.8 10*3/uL (1.4-7.4); Neutrophils % 47.5 % (38.7-73.9); Platelet Count 223 T/CUMM (130-400); Red Blood Count 4.45 MC/CUMM (3.8-5.5); White Blood Count 5.8 T/CUMM (4-12)
[2016-12-16] MEDS ORDERED: ONDANSETRON 4 MG/2 ML VIAL ONE (11:54)
[2016-12-16 12:02] LABS: Calcium 9.6 MG/DL (8.5-10.1); Potassium 3.7 MMOL/L (3.5-5.1)
[2016-12-16] MEDS ORDERED: ONDANSETRON 4 MG/2 ML VIAL IV STA (12:02)
--- NOTE | 2016-12-16 12:16 | CT Report ---
History is seizure Comparison 07/08/2016 There is diffuse atrophy. A moderate to large amount of patchy and more confluent white matter low densities again seen with the more focal chronic lacunae in the anterior left basal ganglia No acute hemorrhage or mass effects seen No acute cortical stroke identified Impression: Chronic small vessel ischemic changes similar on the prior study The CT exam was performed using one or more of the following dose reduction techniques: Automated exposure control, adjustment of the mA and/or kV according to patient size, or use of iterative reconstruction technique. PROCEDURE INTERPRETED AT [facility] DEPARTMENT OF RADIOLOGY Final Report Signed by: Dr. Skyla Jewell
--- NOTE | 2016-12-16 12:24 | XRay Report ---
History: Cough Date: 12/16/2016 Study: Chest x-ray AP portable Comparison exam: September 15, 2016 There is stable cardiomegaly. The mediastinal contour is unchanged. The pulmonary vasculature is not engorged. 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 There is no acute pulmonary infiltrate. There are some probable mild scattered emphysematous changes. There is no gross pleural effusion. Osseous structures are unchanged. Impression: No adverse interval changes compared to the previous study. Stable mild cardiomegaly. Stable right diaphragmatic hernia. No acute infiltrate PROCEDURE INTERPRETED AT [facility] DEPARTMENT OF RADIOLOGY Final Report Signed by: Dr. Gina Carranza
--- NOTE | 2016-12-16 13:18 | Emergency Department Note ---
Alexander Stock Brittany, am scribing for, and in the presence of, Efren Astudillo MD 11:44. Baudilio Stock Phillip K, MD, personally performed the services described in this documentation, ascribed by Nya Munoz in my presence, and it is both accurate and complete . Arrival - Arrival Chief Complaint: Seizure Stated Complaint: shaking at home ED Nursing Triage Note: pt family reports that pt had seizures that started last night. reports had another one this morning and has been having shaking episodes since then. Mode of Arrival: Stretcher Limitations: No Limitations Source: Patient, Family, RN Notes Reviewed - History of Present Illness HPI Narrative: Patient is a 81 y/o black male with a history of Seizure Disorder presenting to the ED with c/o seizure activity that began last night. Patient's family reports that patient seized last night and again this morning. She states that patient was shaking all over, aphasic, and complained of "gum and tongue tightness." Denies loss of consciousness or loss of bowel/bladder control during these seizure episodes. She states that patient has been compliant with medications. He currently takes Keppra and Ativan. She reports that prior to new onset of seizure activity this weekend and the past two days, patient had not had seizures in quite a few months. Patient was notably seen here in the ED on 12/12/16 s/p seizure activity due to being out of his Ativan and was DC'd with rx for Ativan. CT Head 07/08/16 that showed an old CVA, but was unchanged from previous CT Head. He is a patient of Dr. Paz of Neurology and last appointment was earlier this month. Patient states he's had some left chest wall pain and confirms tenderness upon palpation. Family states that he's had some swelling of the bilateral lower extremities, right greater than left. Patient has a history of Dementia. He is not a current smoker. No other complaint/pain. Onset (ago): hour(s) Consistency: constant Allergies/Adverse Reactions: Allergies Allergy/AdvReac Type Severity Reaction Status Date / Time No Known Allergies Allergy Verified 12/12/16 13:32 Home Medications: Home Medications Medication Instructions Recorded Confirmed Type glipiZIDE [Glucotrol] 5 mg PO AC BREAKFAST 10/31/14 12/12/16 History Zolpidem Tartrate [Ambien] 10 mg PO BEDTIME 12/13/15 12/12/16 History Carvedilol [Coreg] 12.5 mg PO BID #60 tablet 12/15/15 12/12/16 Rx Lisinopril 20 mg PO QAM 12/23/15 12/12/16 History QUEtiapine [SEROquel] 25 mg PO BID 12/23/15 12/12/16 History Furosemide Tab [Lasix Tab] 20 mg PO BID DIURETIC 02/06/16 12/12/16 History Meloxicam [Mobic] 7.5 mg PO DAILY 04/12/16 12/12/16 History LORazepam TAB [Ativan Tab] 0.5 mg PO BID #60 tablet 04/13/16 12/12/16 Rx Donepezil HCl 10 mg PO BEDTIME 06/21/16 12/12/16 History Hydrocodone/Acetaminophen 1 each PO Q12HR PRN 07/08/16 12/12/16 History [Hydrocodon-Acetaminoph 7.5-325] OXcarbazepine [Trileptal] 300 mg PO BID 09/08/16 12/12/16 History levETIRAcetam [Keppra Xr] 500 mg PO BID 09/08/16 12/12/16 History Aspirin EC Tab 81 mg PO QAM 12/12/16 12/12/16 History LORazepam TAB [Ativan Tab] 0.5 mg PO BID #20 tablet 12/12/16 Rx Oxybutynin Chloride [Oxybutynin 5 mg PO QAM 12/12/16 12/12/16 History Chloride ER] Trazodone HCl 100 mg PO BEDTIME 12/12/16 12/12/16 History Review of System - Review of System 12 point system: reviewed and no additional remarkable complaints except as stated - Review of System Constitutional: Absent: chills, fever, weakness Eyes: Absent: vision change Head/Ears/Nose/Throat: Absent: nasal drainage, sore throat Respiratory: Absent: respiratory distress Cardiovascular: Present: chest pain, edema (bilateral lower extremities) Gastrointestinal: Absent: abdominal pain, nausea, vomiting, diarrhea, constipation Genitourinary male: Absent: urgency, dysuria, frequency Musculoskeletal: Absent: arm pain, back pain, leg pain, neck pain Skin: Absent: rash Neurological: Present: other (seizure). Absent: headache Psychiatric: Absent: anxiety, depression Medical,Surgical,& Family Hx - Medical History Cardio: History of: Cerebrovascular Disease, Hypertension Psychological: History of: Anxiety Disorders, Psychiatric/Substance Abuse Tx ( ETOH abuse DEMENTIA) No history of: Psychiatric Problems Neurology: History of: Cerebrovascular Accident (NO DEFECITS), Dementia, Seizures, TIA HEENT: History of: Eye Problem (cataracts GLASSES) Endocrine: History of: Diabetes Mellitus (NIDDM), Dyslipidemia No history of: Diabetes Mellitus (IDDM), Thyroid Disorder Rheumatology: History of;: Gout, Rheumatoid Arthritis, Rheumatological Problems Respiratory: History of: Respiratory Problems No history of: Asthma, COPD Genitourinary: History of: Prostate Problems (enlarged) Gastrointestinal: History of: GERD (stricture), Gastrointestinal Bleed, Liver Problems (elevated liver enzymes), Polyps, GI Problems (hiatal hernia) Musculoskeletal: History of: Degenerative Disk Disease Hematology: History of: Anemia, Bleeding Problems (gi bleed) Other: No history of: Cancer, HIV - Surgical History Cardiac Surgeries: Patient Denies: Cardiac Catheterization Thoracic Surgeries: Patient denies;: Organ Transplant Neurologic Surgeries: Patient denies: Neurologic Surgery Abdominal Surgeries: Surgical HX of: Colonoscopy, EGD Orthopedic Surgeries: Surgical HX of;: Orthopedic Surgery (DUAL ROTATOR CUFF), Total Knee Replacement (Rt 09/15) - Family History Family History: Reports;: Family Cancer, Family Hypertension (mother), Family Psychiatric Problems (mother had alzheimers) Denies;: Family Anesthesia Reaction, Family Diabetes, Family Heart Disease, Family Stroke - Social History Smoking Status: Former smoker Exam Vital Signs: Vital Signs Temperature 98.0 F 12/16/16 11:11 Pulse Rate 61 12/16/16 12:00 Respiratory Rate 20 12/16/16 12:00 Blood Pressure 162/95 12/16/16 12:00 O2 Sat by Pulse Oximetry 97 12/16/16 12:00 - General General appearance: alert, in no apparent distress - Head Head exam: Present: atraumatic, normocephalic, normal inspection - Eye Eye exam: Present: normal appearance, PERRL, EOMI - ENT ENT exam: Present: normal exam, normal oropharynx - Neck Neck exam: Present: normal inspection, full ROM, trachea midline - Chest Chest inspection: Present: symmetric chest wall rise, tenderness (left anterior chest wall tenderness to palpation) - Respiratory Respiratory exam: Present: normal lung sounds bilaterally - Cardiovascular Cardiovascular exam: Present: regular rate, normal rhythm, normal heart sounds - Abdominal Exam Abdominal exam: Present: soft, normal bowel sounds. Absent: tenderness - Extremities Exam Extremities exam: Present: pedal edema (+1 edema to the LLE, +2 edema to the RLE ). Absent: normal inspection - Back Exam Back exam: Present: normal inspection - Neurological Exam Neurological exam: Present: alert, oriented X3, CN II-XII intact. Absent: motor sensory deficit - Psychiatric Psychiatric exam: Present: normal affect, normal mood - Skin Skin exam: Present: warm, dry Course Course Narrative: Patient discussed with the hospitalist. Results - Labs CBC & BMP: 12/16/16 11:32 12/16/16 11:32 Lab Results: I have reviewed the patients labs (Urinalysis is pending) Labs: Laboratory Tests 12/12/16 12/12/16 12/16/16 14:22 14:22 11:32 WBC 5.4 5.8 RBC 4.61 4.45 Hgb 11.8 L 11.6 L Hct 37.0 L 35.6 L MCV 80.3 L 80.0 L MCH 26 L 26 L MCHC 31.9 L Plt Count 209 223 Baso % (Auto) 0.9 H Sodium 141 Potassium 3.5 Chloride 103 Carbon Dioxide 30 BUN 15 Creatinine 1.10 Glucose 129 H Calcium 9.6 Magnesium 2.1 Serum Alcohol < 15 L Laboratory Tests 12/16/16 11:32 Sodium 143 Potassium 3.7 Chloride 108 H Carbon Dioxide 30 BUN 13 Creatinine 1.10 Glucose 127 H - Diagnostic Findings Procedure: Chest x-ray: report reviewed by me (No adverse interval changes compared to the previous study. Stable mild cardiomegaly. Stable right diaphragmatic hernia. No acute infiltrate.), CT: report reviewed by me (CT Head : Chronic small vessel ischemic changes similar on the prior study.) Disposition Clinical Impression: Possible seizures, Possible rigors Case discussed with: patient, patient's family Disposition: Still a Patient Condition: Guarded Additional Instructions: Admit to the hospitalist and consult neurology.
--- NOTE | 2016-12-16 13:31 | EKG Report ---
Stationary ECG Study [facility] ER Test Date: 12/16/2016 1:24:50 PM Pat Name: ZANE ALCALA Department: Room: Gender: M Awning Frame Maker: : [id number] Requested by: Efren Emanuel Order Number: [id number] Reading MD: SOPHY FITZGERALD Intervals [place] Rate: 58 P: 66 DE: 195 QRS: 16 QRSD: 103 T: 44 QT: 421 QTc: 417 Interpretive Statements SINUS RHYTHM POOR QUALITY BASELINE Electronically Signed On 12-19-16 15:38:17 CDT by SOPHY FITZGERALD [email or web address]
[2016-12-16 13:56] LABS: Apearance,Urine CLEAR (Clear); Bacteria,Urine Occasional /HPF (Few); Bilirubin,Urine Negative (Negative); Blood, Urine Negative (Negative); Glucose,Urine (UA) Negative (Negative); Ketones,Urine Negative (Negative); Mucus,Urine Occasional /LPF (Occasional); Nitrite,Urine Negative (Negative); Protein,Urine Negative; RBC,Urine 1 /HPF (0-4); Squamous Epithelial Cell,Urine Occasional /HPF (0-10); Urine Color Straw (Yellow); Urine Specific Gravity 1.006 (1.001-1.035); Urine Urobilinogen < 2.0 EU/DL (0.2-1.0); WBC,Urine 2 /HPF (0-6)
--- NOTE | 2016-12-16 14:35 | Hospitalist History & Physical ---
Addendum entered and electronically signed by Chandler Calzada NP 12/16/16 16: 41: Addendum to neuro examination. Pt was alert and oriented x 3. Pt. exhibited generalized weakness in all extremities. There was also bilateral tremor like activity present. Speech was slightly slurred when speaking. GCS of 15. EOM is intact. No facial palsy noted. Gag reflex not tested. Strabismus noted to left eye. No other deficits noted. Original Note: <Chandler Calzada - Last Filed: 12/16/16 16:01> Assessment and Plan (1) Seizure disorder Status: Chronic Assessment and plan: Consult Neuro. Stat EEG. CT negative. Drug screen. CBC/BMP. Prn ativan. Seizure precautions. Current Visit: No (2) Hypertension Status: Acute Current Visit: No (3) Status post total right knee replacement Status: Chronic Assessment and plan: Pt. had total right knee replacement. PT/OT will be consulted for strengthening pending recs from neuro about patient's status. Current Visit: No (4) Dementia Status: Chronic Assessment and plan: Pt. will be started on home meds once verified. Current Visit: No Qualifiers: Dementia type: Alzheimer's disease Alzheimer's disease onset: late-onset Dementia behavioral disturbance: without behavioral disturbance Qualified Code (s): G30.1 - Alzheimer's disease with late onset; F02.80 - Dementia in other diseases classified elsewhere without behavioral disturbance (5) Type 2 diabetes mellitus Status: Chronic Assessment and plan: Accuchecks ACHS. Initiate SSI. Current Visit: No History of Present Illness Chief complaint: seizures/chest pain History of present illness: Mr. De Jesus is a 81 year old black male with a history of htn, dm, CVA, TIA, seizure disorder, past etoh abuse, bph, dyslipidemia, and gout that presented to the ED with complaints of seizure activity that start yesterday evening. Pt is accompanied by his daughter who provides most of his history. She states that the patient just began to "shake all over". She also stated that the patient started having trouble speaking. Pt. denies any dizziness, shortness of breath, loss of vision or consciousness, bowel/bladder control or headache during these episodes. Pt. denies any lateralizing weakness. Pt. has a history of a seizure disorder and takes Keppra and Ativan. Pt. daughter states that over the last 2 years patient has began to having more seizures and that number has increased more over the last 2 weeks. They also report that the patient was recently seen in the ED on 12/12 for a similiar complaint after running out of Ativan. This medication was refilled in the ED and patient has been taking it daily. On examination in the ED, pt's daughter also reports pt stating he had chest pain. When questioned pt. gave vague description of left sided chest pain with no radiation. EKG was performed. CT of head was also performed in the ED revealing no acute pathology. Pt. will be admitted to the hospitalist service for further evaluation and treatment. Home Medications Medication Instructions Recorded Confirmed Type glipiZIDE [Glucotrol] 5 mg PO AC BREAKFAST 10/31/14 12/16/16 History Zolpidem Tartrate [Ambien] 10 mg PO BEDTIME 12/13/15 12/16/16 History Carvedilol [Coreg] 12.5 mg PO BID #60 tablet 12/15/15 12/16/16 Rx Lisinopril 20 mg PO DAILY 12/23/15 12/16/16 History QUEtiapine [SEROquel] 25 mg PO BID 12/23/15 12/16/16 History Furosemide Tab [Lasix Tab] 20 mg PO BID DIURETIC 02/06/16 12/16/16 History Meloxicam [Mobic] 7.5 mg PO DAILY 04/12/16 12/16/16 History Donepezil HCl 10 mg PO BEDTIME 06/21/16 12/16/16 History Hydrocodone/Acetaminophen 1 each PO Q12HR PRN 07/08/16 12/16/16 History [Hydrocodon-Acetaminoph 7.5-325] OXcarbazepine [Trileptal] 300 mg PO BID 09/08/16 12/16/16 History levETIRAcetam [Keppra Xr] 500 mg PO BID 09/08/16 12/16/16 History Aspirin EC Tab 81 mg PO QAM 12/12/16 12/16/16 History LORazepam TAB [Ativan Tab] 0.5 mg PO BID #20 tablet 12/12/16 12/16/16 Rx Oxybutynin Chloride [Oxybutynin 5 mg PO DAILY 12/12/16 12/16/16 History Chloride ER] Trazodone HCl 100 mg PO BEDTIME 12/12/16 12/16/16 History amLODIPine [Norvasc] 5 mg PO DAILY 12/16/16 12/16/16 History Allergies Allergy/AdvReac Type Severity Reaction Status Date / Time No Known Allergies Allergy Verified 12/12/16 13:32 Medical,Surgical,& Family Hx - Medical History Cardio: History of: Cerebrovascular Disease, Hypertension Psychological: History of: Anxiety Disorders, Psychiatric/Substance Abuse Tx ( ETOH abuse DEMENTIA) No history of: Psychiatric Problems Neurology: History of: Cerebrovascular Accident (NO DEFECITS), Dementia, Seizures, TIA HEENT: History of: Eye Problem (cataracts GLASSES) Endocrine: History of: Diabetes Mellitus (NIDDM), Dyslipidemia No history of: Diabetes Mellitus (IDDM), Thyroid Disorder Rheumatology: History of;: Gout, Rheumatoid Arthritis, Rheumatological Problems Respiratory: History of: Respiratory Problems No history of: Asthma, COPD Genitourinary: History of: Prostate Problems (enlarged) Gastrointestinal: History of: GERD (stricture), Gastrointestinal Bleed, Liver Problems (elevated liver enzymes), Polyps, GI Problems (hiatal hernia) Musculoskeletal: History of: Degenerative Disk Disease Hematology: History of: Anemia, Bleeding Problems (gi bleed) Other: No history of: Cancer, HIV - Surgical History Cardiac Surgeries: Patient Denies: Cardiac Catheterization Thoracic Surgeries: Patient denies;: Organ Transplant Neurologic Surgeries: Patient denies: Neurologic Surgery Abdominal Surgeries: Surgical HX of: Colonoscopy, EGD Orthopedic Surgeries: Surgical HX of;: Orthopedic Surgery (DUAL ROTATOR CUFF), Total Knee Replacement (Rt 09/15) - Family History Family History: Reports;: Family Cancer, Family Hypertension (mother), Family Psychiatric Problems (mother had alzheimers) Denies;: Family Anesthesia Reaction, Family Diabetes, Family Heart Disease, Family Stroke - Social History Smoking Status: Former smoker Marital Status: Lives With:: Spouse Functional capacity: uses cane/walker - Constitutional Constitutional: Absent: daytime sleepiness, fever(s) - EENT Eyes: Present: loss of vision, requires corrective lense. Absent: blurry vision Ears: Present: decreased hearing. Absent: ear discharge Nose, mouth and throat: Absent: epistaxis, headache(s) - Cardiovascular Cardiovascular: Present: chest pain at rest (pt. ), edema - Respiratory Respiratory: Absent: cough, dyspnea - Gastrointestinal Gastrointestinal: Present: nausea, vomiting. Absent: abdominal pain - Genitourinary Genitourinary: Absent: difficulty urinating, hematuria - Musculoskeletal Musculoskeletal: Absent: back pain - Neurological Neurological: Present: abnormal speech. Absent: confusion, convulsions, memory loss, numbness, paresthesias - Psychiatric Psychiatric: Absent: anxiety Exam - Constitutional Vitals: Period Temp Pulse Resp BP Sys/Miles Pulse Ox Last 24 Hr 98.0 F-98.0 F 57-74 18-20 134-176/93-100 95-100 General appearance: no acute distress - Head Head exam: Present: normal inspection, normocephalic - Eye Eye exam: Present: EOMI. Absent: scleral icterus Pupils: Present: RYANN - ENT ENT exam: Present: normal exam - Respiratory Respiratory exam: Present: clear to auscultation bilaterally. Absent: wheezes - Cardiovascular Cardiovascular exam: Present: regular rate and rhythm - GI/Abdominal GI/Abdominal exam: Present: normal bowel sounds, soft. Absent: tenderness - Extremities Exam Extremities exam: Present: normal capillary refill, edema - Neurological Exam Neurological exam: Present: alert, oriented X3 - Psychiatric Psychiatric exam: Present: anxious - Skin Skin exam: Present: normal color, warm, dry Results - Labs CBC & BMP: 12/16/16 11:32 12/16/16 11:32 Lab Results: I have reviewed the past 24 hour labs <Sania Paulino - Last Filed: 12/16/16 18:11> Assessment and Plan (1) Tremors of nervous system Status: Acute Assessment and plan: ativan prn, Dr. Paz feels he is having toxic affects from medications, will check PTT, PT, liver profile, ammonia Current Visit: Yes (2) Hypertension Status: Acute Assessment and plan: restarted coreg and lisinopril Current Visit: No (3) Diabetes mellitus Status: Acute Assessment and plan: hold glyburide, isc Current Visit: No (4) Seizure disorder Status: Chronic Assessment and plan: Dr. Paz has seen patient and does not feels he is having seizures, cont keppra and trileptal Current Visit: No History of Present Illness History of present illness: Mr. De Jesus is a 81 year old male. Patient seen and examined. History and physical reviewed and edited. Agree with above Medical,Surgical,& Family Hx - Social History Frequency of Alcohol Use: None Type of Drug Use: None - Respiratory Respiratory: Absent: dyspnea on exertion - Endocrine Endocrine: Present: fatigue, heat intolerance. Absent: cold intolerance - Hematologic/Lymphatic Hematologic/Lymphatic: Absent: easy bleeding, easy bruising Exam - Constitutional Vitals: Period Temp Pulse Resp BP Sys/Miles Pulse Ox Last 24 Hr 97.6 F-98.0 F 57-74 14-25 134-177/90-114 94-100 General appearance: over weight - Eye Pupils: Present: normal accommodation - ENT ENT exam: Present: normal external ear exam - Neck Neck exam: Absent: lymphadenopathy - Cardiovascular Cardiovascular exam: Absent: systolic murmur - Neurological Exam Neurological exam: Present: reflexes normal, other (tremors). Absent: motor sensory deficit Results - Labs CBC & BMP: 12/16/16 11:32 12/16/16 11:32 - Diagnostic Findings Procedure: Chest x-ray: report reviewed by me (copd ), CT: report reviewed by me (head small vessel disease)
[2016-12-16] MEDS ORDERED: LORazepam 2 MG/1 ML VIAL ONE (15:26)
[2016-12-16] MEDS ORDERED: LORazepam 2 MG/1 ML VIAL IV STA (15:30)
[2016-12-16] MEDS ORDERED: GLUCAGON 1 MG VIAL IM PRN ×2 (16:17→17:45)
[2016-12-16] MEDS ORDERED: LORazepam 2 MG/1 ML VIAL IV PRN (16:17)
[2016-12-16] MEDS ORDERED: DEXTROSE 50% 25 GM/50 ML VIAL IV PRN (16:17)
[2016-12-16] MEDS: INSULIN LISPRO 100 UNIT/ML SUBCUT SCH ×2 (16:40→21:36)
[2016-12-16 17:00] LABS: Barbiturates Screen,Urine Negative (Negative); Benzodiazepines Screen,Urine Negative (Negative); Cannabinoid Screen,Urine Negative (Negative); Opiate Screen,Urine Negative (Negative); Phencyclidine Screen,Urine Negative (Negative)
[2016-12-16] MEDS ORDERED: LACOSAMIDE INJ 150 MG in SODIUM CHLORIDE 0.9% 50 ML IV SCH (17:00)
[2016-12-16] MEDS ORDERED: levETIRAcetam 500 MG TABLET PO SCH (17:48)
[2016-12-16 17:54] LABS: Alanine Aminotransferase 74 U/L (16-61); Albumin 3.9 G/DL (3.4-5.0); Alkaline Phosphatase 139 U/L (45-117); Aspartate Amino Transferase 25 U/L (0-37); Bilirubin,Direct < 0.10 MG/DL (0.0-0.20); Bilirubin,Indirect 0.3 MG/DL (0.0-1.0); Bilirubin,Total < 0.39 MG/DL (0.2-1.0); Total Protein 7.7 G/DL (6.4-8.3)
[2016-12-16 17:58] LABS: Ammonia 42 UMOL/L (11-32)
[2016-12-16] MEDS: CARVEDILOL 12.5 MG TABLET PO SCH ×2 (18:06→21:34)
[2016-12-16] MEDS: OXcarbazepine 300 MG TABLET PO SCH ×2 (18:06→21:34)
[2016-12-16 18:55] LABS: INR 1.1; PT Patient Result 11.3 SECS; Partial Thromboplastin Time 29.2 SECS (0-40)
[2016-12-16] MEDS ORDERED: DONEPEZIL 10 MG TABLET PO SCH (21:00)
[2016-12-16] MEDS: LACTULOSE 20 GM/30 ML UDCUP PO SCH (21:32)
[2016-12-16] MEDS: ZALEPLON 5 MG CAPSULE PO PRN (21:33)
[2016-12-16] MEDS: levETIRAcetam 500 MG TABLET PO SCH (21:34)
--- NOTE | 2016-12-17 02:23 | EKG Report ---
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
--- NOTE | 2016-12-17 02:24 | EKG Report ---
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
[2016-12-17 04:57] LABS: Basophils # 0.1 10*3/uL (0.0-0.2); Basophils % 0.8 % (0.0-0.8); Eosinophils # 0.1 10*3/uL (0.0-0.87); Eosinophils % 1.5 % (0.00-10.9); Hematocrit 35.6 VOL% (42.0-52.0); Hemoglobin 11.1 GM/DL (14.0-18.0); Immature Granulocytes % 0.8 %; Immature Granulocytes Absolute 0.05 #; Lymphocytes # 2.4 10*3/uL (1.4-4.0); Mean Corpuscular HGB Conc 31.2 GM/DL (32-36); Mean Corpuscular Hemoglobin 26 PG (27-34); Mean Corpuscular Volume 81.7 FL (87-102); Mean Platelet Volume 10.8 FL (9.6-12.0); Monocytes # 0.6 10*3/uL (0.11-0.8); Monocytes % 10.3 % (1.7-12.7); Neutrophils # 2.7 10*3/uL (1.4-7.4); Neutrophils % 46.6 % (38.7-73.9); Platelet Count 219 T/CUMM (130-400); Red Blood Count 4.36 MC/CUMM (3.8-5.5); Red Cell Distribution Width 15.9 % (9.3-17.3); White Blood Count 5.9 T/CUMM (4-12)
[2016-12-17 05:33] LABS: Calcium 8.9 MG/DL (8.5-10.1); Magnesium 2.2 MG/DL (1.8-2.4); Osmolality,Calculated 287.8 MOS/KG (273-304); Risk Ratio 4.89; Thyroid Stimulating Hormone 2.24 uIU/ml (0.358-3.74); VLDL CHOLESTEROL 26.6 MG/DL
--- NOTE | 2016-12-17 07:56 | Neurology Consult Note ---
History of Present Illness History of present illness: Mr. De Jesus is a 81 year old -[place] gentleman with past medical history significant for hypertension, diabetes, CVA, TIA, seizure disorder, history of alcoholism, dyslipidemia and gout that presented to the ED with complaints of seizure activity that start yesterday evening. Pt is accompanied by his family who provides most of his history. He reported that the patient just began to "shake all over". She also stated that the patient started having trouble speaking. Pt. denies any dizziness, shortness of breath, loss of vision or consciousness, bowel/bladder control or headache during these episodes. Pt. denies any lateralizing weakness. Pt. has a history of a seizure disorder and takes Keppra and Trileptal. Pt. daughter states that over the last 2 years patient has began to having more seizures and that number has increased more over the last 2 weeks. They also report that the patient was recently seen in the ED on 12/12 for a similiar complaint after running out of Ativan. CT of the head revealed chronic small vessel disease. Home Medications Medication Instructions Recorded Confirmed Type glipiZIDE [Glucotrol] 5 mg PO AC BREAKFAST 10/31/14 12/16/16 History Zolpidem Tartrate [Ambien] 10 mg PO BEDTIME 12/13/15 12/16/16 History Carvedilol [Coreg] 12.5 mg PO BID #60 tablet 12/15/15 12/16/16 Rx Lisinopril 20 mg PO DAILY 12/23/15 12/16/16 History QUEtiapine [SEROquel] 25 mg PO BID 12/23/15 12/16/16 History Furosemide Tab [Lasix Tab] 20 mg PO BID DIURETIC 02/06/16 12/16/16 History Meloxicam [Mobic] 7.5 mg PO DAILY 04/12/16 12/16/16 History Donepezil HCl 10 mg PO BEDTIME 06/21/16 12/16/16 History Hydrocodone/Acetaminophen 1 each PO Q12HR PRN 07/08/16 12/16/16 History [Hydrocodon-Acetaminoph 7.5-325] OXcarbazepine [Trileptal] 300 mg PO BID 09/08/16 12/16/16 History Aspirin EC Tab 81 mg PO QAM 12/12/16 12/16/16 History LORazepam TAB [Ativan Tab] 0.5 mg PO BID #20 tablet 12/12/16 12/16/16 Rx Oxybutynin Chloride [Oxybutynin 5 mg PO DAILY 12/12/16 12/16/16 History Chloride ER] Trazodone HCl 100 mg PO BEDTIME 12/12/16 12/16/16 History amLODIPine [Norvasc] 5 mg PO DAILY 12/16/16 12/16/16 History levETIRAcetam [Levetiracetam] 500 mg PO BID 12/16/16 12/16/16 History Allergies Allergy/AdvReac Type Severity Reaction Status Date / Time No Known Allergies Allergy Verified 12/12/16 13:32 12 point system: reviewed and no additional remarkable complaints except as stated Medical,Surgical,& Family Hx - Medical History Cardio: History of: Cerebrovascular Disease, Hypertension Psychological: History of: Anxiety Disorders, Psychiatric/Substance Abuse Tx ( ETOH abuse DEMENTIA) No history of: Psychiatric Problems Neurology: History of: Cerebrovascular Accident (NO DEFECITS), Dementia, Seizures, TIA HEENT: History of: Eye Problem (cataracts GLASSES) Endocrine: History of: Diabetes Mellitus (NIDDM), Dyslipidemia No history of: Diabetes Mellitus (IDDM), Thyroid Disorder Rheumatology: History of;: Gout, Rheumatoid Arthritis, Rheumatological Problems Respiratory: History of: Respiratory Problems No history of: Asthma, COPD Genitourinary: History of: Prostate Problems (enlarged) Gastrointestinal: History of: GERD (stricture), Gastrointestinal Bleed, Liver Problems (elevated liver enzymes), Polyps, GI Problems (hiatal hernia) Musculoskeletal: History of: Degenerative Disk Disease Hematology: History of: Anemia, Bleeding Problems (gi bleed) Other: No history of: Cancer, HIV - Surgical History Cardiac Surgeries: Patient Denies: Cardiac Catheterization Thoracic Surgeries: Patient denies;: Organ Transplant Neurologic Surgeries: Patient denies: Neurologic Surgery Abdominal Surgeries: Surgical HX of: Colonoscopy, EGD Orthopedic Surgeries: Surgical HX of;: Orthopedic Surgery (DUAL ROTATOR CUFF), Total Knee Replacement (Rt 09/15) - Family History Family History: Reports;: Family Cancer, Family Hypertension (mother), Family Psychiatric Problems (mother had alzheimers) Denies;: Family Anesthesia Reaction, Family Diabetes, Family Heart Disease, Family Stroke - Social History Smoking Status: Former smoker Frequency of Alcohol Use: None Type of Drug Use: None Exam - Constitutional Vitals: Period Temp Pulse Resp BP Sys/Miles Pulse Ox Last 24 Hr 97.6 F-98.1 F 50-74 10-25 111-177/71-114 94-100 Exam: GENERAL: Patient is in no acute distress. NECK: Neck is supple. There is no JVD. No carotid bruits present. No thyroid masses. CVS: First and second heart sounds are normal. There is no S3 present. Regular rate and rhythm. RESPIRATORY: Lungs are clear to auscultation without any rales or rhonchi. ABDOMEN: Soft and non-tender. Bowel sounds are present. There is no hepatosplenomegaly. EXT: There is no palpable edema. Peripheral pulses are present. Skin: No rashes Central Nervous system: General: Alert, awake Speech: Fluent Comprehension: Intact and normal Facial expressions: Normal Cranial Nerves: CN1/Olfactory: Normal CN II/ Optic: Normal, Visual Guillen unreliable CN III, and : RYANN & EOMI CN V: Normal & intact CN VII: face is symmetric CNVIII: Normal CN XI/X/XI/XII: Intact and Normal Motor: Bulk and Tone is normal. Bilateral asterixis Strength in the right 2-3/5 Strength in the left 2-3/5 Sensory: Decreased for all the modalities of PP, LT and temp sense Reflexes: 1+ and symmetrical Cerebellar function: Cannot be tested Toes: Equivocal Gait: Not tested Results - Labs CBC & BMP: 12/17/16 04:41 12/17/16 04:41 Assessment and Plan (1) Partial epilepsy Status: Acute Assessment and plan: Continue Keppra and Trileptal at the same dose for now EEG Current Visit: Yes (2) Asterixis Status: Acute Assessment and plan: This is likely due to toxic metabolic etiology We will watch him closely Current Visit: No
[2016-12-17] MEDS: INSULIN LISPRO 100 UNIT/ML SUBCUT SCH ×4 (08:31→21:37)
[2016-12-17] MEDS: ASPIRIN EC 81 MG TABLET PO SCH (09:50)
[2016-12-17] MEDS: LISINOPRIL 20 MG TABLET PO SCH (09:51)
[2016-12-17] MEDS: OXcarbazepine 300 MG TABLET PO SCH ×2 (09:51→21:33)
[2016-12-17] MEDS: amLODIPine 5 MG TABLET PO SCH (09:52)
[2016-12-17] MEDS: levETIRAcetam 500 MG TABLET PO SCH (09:53)
[2016-12-17] MEDS: LACTULOSE 20 GM/30 ML UDCUP PO SCH ×2 (09:53→21:33)
[2016-12-17] MEDS: CARVEDILOL 12.5 MG TABLET PO SCH ×2 (09:53→21:34)
--- NOTE | 2016-12-17 11:04 | Hospitalist Progress Note ---
Assessment and Plan (1) Tremors of nervous system Status: Acute Assessment and plan: ativan prn, Dr. Paz has seen patient and we will do an EEG today. Patient has liver dysfunction, will have Pharmacist review the medications. Current Visit: Yes (2) Seizure disorder Status: Chronic Assessment and plan: cont keppra and trileptal, ativan prn Current Visit: No (3) Hypertension Status: Acute Assessment and plan: cont coreg and lisinopril Current Visit: No (4) Diabetes mellitus Status: Acute Assessment and plan: isc, hgb A1c 7.7 Current Visit: No Hospitalist: Subjective Interval history: Patient seen by Dr. Paz last night but does not believe his tremors with speak stuttering are seziures. He had communicated to nursing that it could be side effects from his medications. We have pharmacy to review meds. Patient had very little sleep last night and feels no better this morning. EEG planned for this morning. Exam - Constitutional Vitals: Period Temp Pulse Resp BP Sys/Miles Pulse Ox Last 24 Hr 97.6 F-98.1 F 50-74 10-25 111-177/71-114 94-100 Exam: Heart Rate-[RRR] Lungs-[CTAB] GI-[+bs soft, NT] Ext-[no edema] Neuro continues to have stuttering of speech and tremors, alert and oriented times 2 psych [depressed mood and affect] General [mild acute distress] Results - Labs CBC & BMP: 12/17/16 04:41 12/17/16 04:41 Lab Results: I have reviewed the past 24 hour labs Labs: Urine culture negative downgrowth. AST 74, ALT 139, ammonia level 42
[2016-12-17 13:16] LABS: Hepatitis A Ab IgM Quant 0.21 Index; Hepatitis A Ab IgM Result Negative (Negative); Hepatitis B Core IgM Quant 0.15 Index; Hepatitis B Core IgM Result Negative (Negative); Hepatitis B Surface Ag Quant < 0.10 Index; Hepatitis B Surface Ag Result Negative (Negative); Hepatitis C Virus Ab Quant 0.11 Index; Hepatitis C Virus Ab Result Negative (Negative)
--- NOTE | 2016-12-17 15:16 | Neurology Progress Note ---
Neurology - PN : Subjective Interval history: Patient seems to be doing a little better. However is still having off and on shaking element. EKG today reveals epileptiform discharges. No brady seizures seen Exam (Progress Note) - Constitutional Vitals: Period Temp Pulse Resp BP Sys/Miles Pulse Ox Last 24 Hr 97.4 F-98.1 F 50-72 10-25 111-177/71-114 94-100 Exam: GENERAL: Patient is in no acute distress. NECK: Neck is supple. There is no JVD. No carotid bruits present. No thyroid masses. CVS: First and second heart sounds are normal. There is no S3 present. Regular rate and rhythm. RESPIRATORY: Lungs are clear to auscultation without any rales or rhonchi. ABDOMEN: Soft and non-tender. Bowel sounds are present. There is no hepatosplenomegaly. EXT: There is no palpable edema. Peripheral pulses are present. Skin: No rashes Central Nervous system: General: Alert, awake Speech: Fluent Comprehension: Intact and normal Facial expressions: Normal Cranial Nerves: CN1/Olfactory: Normal CN II/ Optic: Normal, Visual Guillen unreliable CN III, and : RYANN & EOMI CN V: Normal & intact CN VII: face is symmetric CNVIII: Normal CN XI/X/XI/XII: Intact and Normal Motor: Bulk and Tone is normal. Bilateral asterixis Strength in the right 2-3/5 Strength in the left 2-3/5 Sensory: Decreased for all the modalities of PP, LT and temp sense Reflexes: 1+ and symmetrical Cerebellar function: Cannot be tested Toes: Equivocal Gait: Not tested Results - Labs CBC & BMP: 12/17/16 04:41 12/17/16 04:41 Assessment and Plan (1) Partial epilepsy Status: Acute Assessment and plan: Change Keppra to 750 mg IV every 8 Change Trileptal to 450 mg p.o. twice daily Current Visit: Yes (2) Asterixis Status: Acute Assessment and plan: This is likely due to toxic metabolic etiology We will watch him closely Current Visit: No
--- NOTE | 2016-12-17 17:06 | Electroencephalogram ---
HISTORY: An 81 years old patient with a history of seizures and change in mental status. INTRODUCTION: A digital EEG was performed using the standard 10/20 system of electrode placement wit h one channel of EKG monitoring. Photic stimulation was not performed. DESCRIPTION OF RECORD: The background is somewhat disorganized, consist of 6 to 7 hertz, moderate am plitude, bilateral symmetrical rhythm. This record is remarkable for intermittent generalized parasa gittal spike and wave discharges which is more pronounced in the right frontocentral and frontotempor al region. No brady seizure noted. Photic stimulation was not performed. Hyperventilation was not obtained. Hear rate 60 beats per minute. IMPRESSION: ABNORMAL EEG DUE TO: 1. GENERALIZED SLOWING. 2. GENERALIZED INTERMITTENT EPILEPTIFORM DISCHARGES. CLINICAL CORRELATION: This record is supportive of mild to moderate encephalopathy as well as partia l mechanism of epilepsy. Clinical correlation is suggested.
[2016-12-17] MEDS: hydrALAZINE 20 MG/1 ML VIAL IV PRN (17:36)
[2016-12-17] MEDS ORDERED: levETIRAcetam 500 MG TABLET PO SCH (21:00)
[2016-12-17] MEDS: ZALEPLON 5 MG CAPSULE PO PRN (21:34)
[2016-12-18 03:16] LABS: Basophils # 0.1 10*3/uL (0.0-0.2); Basophils % 0.8 % (0.0-0.8); Eosinophils # 0.1 10*3/uL (0.0-0.87); Eosinophils % 0.9 % (0.00-10.9); Hematocrit 36.3 VOL% (42.0-52.0); Hemoglobin 11.6 GM/DL (14.0-18.0); Immature Granulocytes % 0.5 %; Immature Granulocytes Absolute 0.03 #; Lymphocytes # 2.4 10*3/uL (1.4-4.0); Lymphocytes % 37.2 % (21.2-54.2); Mean Corpuscular Hemoglobin 26 PG (27-34); Mean Corpuscular Volume 80.7 FL (87-102); Mean Platelet Volume 10.3 FL (9.6-12.0); Monocytes # 0.7 10*3/uL (0.11-0.8); Monocytes % 10.6 % (1.7-12.7); Neutrophils # 3.2 10*3/uL (1.4-7.4); Platelet Count 224 T/CUMM (130-400); White Blood Count 6.3 T/CUMM (4-12)
[2016-12-18 03:44] LABS: Calcium 9.2 MG/DL (8.5-10.1); Magnesium 2.1 MG/DL (1.8-2.4); Osmolality,Calculated 280.4 MOS/KG (273-304); Potassium 3.9 MMOL/L (3.5-5.1)
--- NOTE | 2016-12-18 08:44 | Neurology Progress Note ---
Neurology - PN : Subjective Interval history: Patient seems to be doing really well. No more seizures reported. No shaking or jerking reported. Exam (Progress Note) - Constitutional Vitals: Period Temp Pulse Resp BP Sys/Miles Pulse Ox Last 24 Hr 97.4 F-97.9 F 53-84 12-26 128-185/71-107 97-100 Exam: GENERAL: Patient is in no acute distress. NECK: Neck is supple. There is no JVD. No carotid bruits present. No thyroid masses. CVS: First and second heart sounds are normal. There is no S3 present. Regular rate and rhythm. RESPIRATORY: Lungs are clear to auscultation without any rales or rhonchi. ABDOMEN: Soft and non-tender. Bowel sounds are present. There is no hepatosplenomegaly. EXT: There is no palpable edema. Peripheral pulses are present. Skin: No rashes Central Nervous system: General: Alert, awake Speech: Fluent Comprehension: Intact and normal Facial expressions: Normal Cranial Nerves: CN1/Olfactory: Normal CN II/ Optic: Normal, Visual Guillen unreliable CN III, and : RYANN & EOMI CN V: Normal & intact CN VII: face is symmetric CNVIII: Normal CN XI/X/XI/XII: Intact and Normal Motor: Bulk and Tone is normal. Bilateral asterixis Strength in the right 2-3/5 Strength in the left 2-3/5 Sensory: Decreased for all the modalities of PP, LT and temp sense Reflexes: 1+ and symmetrical Cerebellar function: Cannot be tested Toes: Equivocal Gait: Not tested Results - Labs CBC & BMP: 12/18/16 03:06 12/18/16 03:06 Assessment and Plan (1) Partial epilepsy Status: Acute Assessment and plan: Change Keppra to 750 mg p.o. 3 times daily Continue Trileptal to 450 mg p.o. twice daily Hopefully home tomorrow morning Current Visit: Yes (2) Asterixis Status: Acute Assessment and plan: This has resolved completely Current Visit: No
[2016-12-18] MEDS: CARVEDILOL 12.5 MG TABLET PO SCH ×2 (09:31→20:32)
[2016-12-18] MEDS: ASPIRIN EC 81 MG TABLET PO SCH (09:31)
[2016-12-18] MEDS: amLODIPine 5 MG TABLET PO SCH (09:31)
[2016-12-18] MEDS: LISINOPRIL 20 MG TABLET PO SCH (09:31)
[2016-12-18] MEDS: LACTULOSE 20 GM/30 ML UDCUP PO SCH ×2 (09:32→20:35)
[2016-12-18] MEDS: OXcarbazepine 300 MG TABLET PO SCH ×2 (09:32→20:33)
[2016-12-18] MEDS: INSULIN LISPRO 100 UNIT/ML SUBCUT SCH ×4 (09:33→20:47)
--- NOTE | 2016-12-18 13:33 | Hospitalist Progress Note ---
Assessment and Plan (1) Tremors of nervous system Status: Acute Assessment and plan: resolved Current Visit: Yes (2) Seizure disorder Status: Chronic Assessment and plan: Resolved with increase in Keppra and Trileptal. Current Visit: No (3) Hypertension Status: Acute Assessment and plan: cont coreg and increase lisinopril to 40 mg Current Visit: No (4) Diabetes mellitus Status: Acute Assessment and plan: isc, hgb A1c 7.7, blood sugar is mildly elevated Current Visit: No Hospitalist: Subjective Interval history: no more seizures, updated daughter Exam - Constitutional Vitals: Period Temp Pulse Resp BP Sys/Miles Pulse Ox Last 24 Hr 96.6 F-97.9 F 55-84 12-26 128-185/71-107 97-100 Exam: Heart Rate-[RRR] Lungs-[CTAB] GI-[+bs soft, NT] Ext-[no edema] Neuro motor 5/5, alert and oriented times 3 psych [normal mood and affect] General [no acute distress] Results - Labs CBC & BMP: 12/18/16 03:06 12/18/16 03:06 Lab Results: I have reviewed the past 24 hour labs
[2016-12-18] MEDS: ZALEPLON 5 MG CAPSULE PO PRN (20:32)
[2016-12-18] MEDS: ACETAMINOPHEN 325 MG TABLET PO PRN (20:32)
[2016-12-18] MEDS: hydrALAZINE 20 MG/1 ML VIAL IV PRN (23:04)
[2016-12-19] MEDS: ACETAMINOPHEN 325 MG TABLET PO PRN ×2 (00:59→10:14)
[2016-12-19] MEDS ORDERED: KETOROLAC 15 MG/1 ML VIAL IV ONE (04:45)
[2016-12-19] MEDS: hydrALAZINE 20 MG/1 ML VIAL IV PRN (04:53)
--- NOTE | 2016-12-19 09:03 | Neurology Progress Note ---
Neurology - PN : Subjective Interval history: Patient continued to improve every day. No new problems reported. No more seizures reported. Shaking has resolved completely. Exam (Progress Note) - Constitutional Vitals: Period Temp Pulse Resp BP Sys/Miles Pulse Ox Last 24 Hr 97.4 F-98.7 F 60-72 18-20 137-194/66-97 98-99 Exam: GENERAL: Patient is in no acute distress. NECK: Neck is supple. There is no JVD. No carotid bruits present. No thyroid masses. CVS: First and second heart sounds are normal. There is no S3 present. Regular rate and rhythm. RESPIRATORY: Lungs are clear to auscultation without any rales or rhonchi. ABDOMEN: Soft and non-tender. Bowel sounds are present. There is no hepatosplenomegaly. EXT: There is no palpable edema. Peripheral pulses are present. Skin: No rashes Central Nervous system: General: Alert, awake Speech: Fluent Comprehension: Intact and normal Facial expressions: Normal Cranial Nerves: CN1/Olfactory: Normal CN II/ Optic: Normal, Visual Guillen unreliable CN III, and : RYANN & EOMI CN V: Normal & intact CN VII: face is symmetric CNVIII: Normal CN XI/X/XI/XII: Intact and Normal Motor: Bulk and Tone is normal. Bilateral asterixis Strength in the right 4/5 Strength in the left 4/5 Sensory: Decreased for all the modalities of PP, LT and temp sense Reflexes: 1+ and symmetrical Cerebellar function: Cannot be tested Toes: Equivocal Gait: Able to get up and walk Results - Labs CBC & BMP: 12/18/16 03:06 12/18/16 03:06 Assessment and Plan (1) Partial epilepsy Status: Acute Assessment and plan: Change Keppra to 750 mg p.o. 3 times daily Continue Trileptal to 450 mg p.o. twice daily Okay to go home from neuro standpoint Follow-up in 4 weeks Current Visit: Yes (2) Asterixis Status: Acute Assessment and plan: This has resolved completely Current Visit: No Specialty Discharge - Follow Up or Referrals Follow up with: Fadi Paz MD [Physician] - 1 Month
--- NOTE | 2016-12-19 09:30 | CT Report ---
CT head/brain wo con Indication: Severe headache Comparison: CT brain dated December 16, 2016 Technique: Multiple axial tomographic images of the brain were obtained without the use of intravenous contrast. Findings: Moderate global volume loss present. Marked periventricular and subcortical hypoattenuation noted which is nonspecific but consistent with chronic microvascular ischemic change. Demyelinating process and vasculitis also considerations. Old lacunar infarcts within and adjacent to left caudate head. Midline structures are nondisplaced. There is no convincing evidence of acute intracranial hemorrhage . Atherosclerotic calcifications demonstrated. The visualized paranasal sinuses and bilateral mastoid air cells are essentially clear. IMPRESSION: No acute intracranial abnormality demonstrated. Chronic findings as detailed above. The CT exam was performed using one or more of the following dose reduction techniques: Automated exposure control, adjustment of the mA and/or kV according to patient size, or use of iterative reconstruction technique. PROCEDURE INTERPRETED AT [facility] DEPARTMENT OF RADIOLOGY Final Report Signed by: Dr Evelio Nichols
[2016-12-19] MEDS: LISINOPRIL 20 MG TABLET PO SCH (10:14)
[2016-12-19] MEDS: amLODIPine 5 MG TABLET PO SCH (10:14)
[2016-12-19] MEDS: OXcarbazepine 300 MG TABLET PO SCH ×2 (10:14→20:18)
[2016-12-19] MEDS: ASPIRIN EC 81 MG TABLET PO SCH (10:15)
[2016-12-19] MEDS: CARVEDILOL 12.5 MG TABLET PO SCH ×2 (10:15→20:19)
[2016-12-19] MEDS: LACTULOSE 20 GM/30 ML UDCUP PO SCH ×2 (10:15→20:19)
[2016-12-19] MEDS: INSULIN LISPRO 100 UNIT/ML SUBCUT SCH ×4 (10:19→20:19)
[2016-12-19] MEDS: KETOROLAC 15 MG/1 ML VIAL IV PRN ×2 (10:47→16:59)
--- NOTE | 2016-12-19 19:48 | Hospitalist Progress Note ---
Hospitalist: Subjective Interval history: 81 year old black male with a history of htn, dm, CVA, TIA, seizure disorder, past etoh abuse, bph, dyslipidemia, and gout that presented to the ED with complaints of seizure activity. He is comfortable today. Exam - Constitutional Vitals: Period Temp Pulse Resp BP Sys/Miles Pulse Ox Last 24 Hr 97.4 F-98.6 F 62-72 18-20 137-189/66-96 96-99 Exam: General: No Acute Distress HEENT: Normocephalic, atraumatic, Extra ocular movements intact Neck: Supple, No JVD Chest: Clear to auscultation B/L CV: S1 + S2 audible without murmur, gallop or rub Abd: soft, NT, Non-distended, BS + Ext: No edema Skin: No purpura, bruising or rash Rheumatologic: No Joint deformities Neurologic: Strengtg 5/5 all extremities, no gross sensory deficits Results - Labs CBC & BMP: 12/18/16 03:06 12/18/16 03:06 - Impressions Assessment and Plan (1) Seizure disorder Status: Chronic Assessment and plan: CT negative. CBC/BMP. Prn ativan. Seizure precautions. Current Visit: No (2) Hypertension Status: Acute Current Visit: No (3) Status post total right knee replacement Status: Chronic Assessment and plan: Pt. had total right knee replacement. PT/OT will be consulted for strengthening pending recs from neuro about patient's status. Current Visit: No (4) Dementia Status: Chronic Assessment and plan: Pt. will be started on home meds once verified. Current Visit: No Qualifiers: Dementia type: Alzheimer's disease Alzheimer's disease onset: late-onset Dementia behavioral disturbance: without behavioral disturbance Qualified Code (s): G30.1 - Alzheimer's disease with late onset; F02.80 - Dementia in other diseases classified elsewhere without behavioral disturbance (5) Type 2 diabetes mellitus Status: Chronic Assessment and plan: Accuchecks ACHS. Cont SSI. Current Visit: No Specialty Discharge - Follow Up or Referrals Follow up with: Fadi Paz MD [Physician] - 1 Month
[2016-12-19] MEDS: ZALEPLON 5 MG CAPSULE PO PRN (20:51)
[2016-12-20] MEDS: ACETAMINOPHEN 325 MG TABLET PO PRN ×2 (04:20→22:06)
[2016-12-20] MEDS: INSULIN LISPRO 100 UNIT/ML SUBCUT SCH ×4 (07:40→20:22)
[2016-12-20] MEDS: amLODIPine 5 MG TABLET PO SCH (09:49)
[2016-12-20] MEDS: LISINOPRIL 20 MG TABLET PO SCH (09:49)
[2016-12-20] MEDS: ASPIRIN EC 81 MG TABLET PO SCH (09:49)
[2016-12-20] MEDS: CARVEDILOL 12.5 MG TABLET PO SCH ×2 (09:49→20:21)
[2016-12-20] MEDS: OXcarbazepine 300 MG TABLET PO SCH ×2 (09:50→20:21)
[2016-12-20] MEDS: LACTULOSE 20 GM/30 ML UDCUP PO SCH ×2 (09:50→20:21)
--- NOTE | 2016-12-20 11:42 | XRay Report ---
XR KUB Indication: Abdominal pain Comparison: None available Findings: No free fluid or free air seen. The bowel gas pattern appears within normal limits. No abnormal calcifications are present. No other abnormality is identified. Impression: No evidence of abnormality demonstrated PROCEDURE INTERPRETED AT [facility] DEPARTMENT OF RADIOLOGY Final Report Signed by: Dr. Gagan Quiles
--- NOTE | 2016-12-20 14:02 | Hospitalist Progress Note ---
Hospitalist: Subjective Interval history: 81 year old black male with a history of htn, dm, CVA, TIA, seizure disorder, past etoh abuse, bph, dyslipidemia, and gout that presented to the ED with complaints of seizure activity. Had some abdominal discomfort today. Exam - Constitutional Vitals: Period Temp Pulse Resp BP Sys/Miles Pulse Ox Last 24 Hr 97.1 F-98.6 F 61-70 18-22 139-189/86-94 90-97 Exam: General: No Acute Distress HEENT: Normocephalic, atraumatic, Extra ocular movements intact Neck: Supple, No JVD Chest: Clear to auscultation B/L CV: S1 + S2 audible without murmur, gallop or rub Abd: soft, NT, Non-distended, BS + Ext: No edema Skin: No purpura, bruising or rash Rheumatologic: No Joint deformities Neurologic: Strengtg 5/5 all extremities, no gross sensory deficits Results - Labs CBC & BMP: 12/18/16 03:06 12/18/16 03:06 - Impressions Assessment and Plan (1) Seizure disorder Status: Chronic Assessment and plan: CT negative. CBC/BMP. Prn ativan. Seizure precautions. Current Visit: No (2) Hypertension Status: Acute Current Visit: No (3) Status post total right knee replacement Status: Chronic Assessment and plan: Pt. had total right knee replacement. PT/OT will be consulted for strengthening pending recs from neuro about patient's status. Current Visit: No (4) Dementia Status: Chronic Assessment and plan: Pt. will be started on home meds once verified. Current Visit: No Qualifiers: Dementia type: Alzheimer's disease Alzheimer's disease onset: late-onset Dementia behavioral disturbance: without behavioral disturbance Qualified Code (s): G30.1 - Alzheimer's disease with late onset; F02.80 - Dementia in other diseases classified elsewhere without behavioral disturbance (5) Type 2 diabetes mellitus Status: Chronic Assessment and plan: Accuchecks ACHS. Cont SSI. Current Visit: No Abdominal discomfort: we will check a KUB today Specialty Discharge - Follow Up or Referrals Follow up with: Fadi Paz MD [Physician] - 1 Month
[2016-12-20] MEDS: hydrALAZINE 20 MG/1 ML VIAL IV PRN (16:37)
[2016-12-20] MEDS: ZALEPLON 5 MG CAPSULE PO PRN (20:28)
[2016-12-20] MEDS: KETOROLAC 15 MG/1 ML VIAL IV PRN (20:28)
[2016-12-20] MEDS: LORazepam 2 MG/1 ML VIAL IV PRN (23:28)
[2016-12-21] MEDS: ACETAMINOPHEN 325 MG TABLET PO PRN ×2 (04:04→10:26)
[2016-12-21] MEDS: INSULIN LISPRO 100 UNIT/ML SUBCUT SCH ×4 (08:05→20:49)
[2016-12-21] MEDS: LISINOPRIL 20 MG TABLET PO SCH (10:04)
[2016-12-21] MEDS: OXcarbazepine 300 MG TABLET PO SCH ×2 (10:04→20:49)
[2016-12-21] MEDS: CARVEDILOL 12.5 MG TABLET PO SCH ×2 (10:04→20:50)
[2016-12-21] MEDS: LACTULOSE 20 GM/30 ML UDCUP PO SCH ×2 (10:04→20:50)
[2016-12-21] MEDS: amLODIPine 5 MG TABLET PO SCH (10:04)
[2016-12-21] MEDS: ASPIRIN EC 81 MG TABLET PO SCH (10:05)
[2016-12-21] MEDS: KETOROLAC 15 MG/1 ML VIAL IV PRN ×2 (10:25→23:57)
[2016-12-21] MEDS: LORazepam 2 MG/1 ML VIAL IV PRN (10:48)
[2016-12-21] MEDS ORDERED: IBUPROFEN 400 MG TABLET PO PRN (18:10)
--- NOTE | 2016-12-21 18:18 | Hospitalist Progress Note ---
Hospitalist: Subjective Interval history: 81 year old black male with a history of htn, dm, CVA, TIA, seizure disorder, past etoh abuse, bph, dyslipidemia, and gout that presented to the ED with complaints of seizure activity. Has some headache today. Exam - Constitutional Vitals: Period Temp Pulse Resp BP Sys/Miles Pulse Ox Last 24 Hr 97.8 F-98.7 F 69-87 18-22 139-160/75-88 96-99 Exam: General: No Acute Distress HEENT: Normocephalic, atraumatic, Extra ocular movements intact Neck: Supple, No JVD Chest: Clear to auscultation B/L CV: S1 + S2 audible without murmur, gallop or rub Abd: soft, NT, Non-distended, BS + Ext: No edema Skin: No purpura, bruising or rash Rheumatologic: No Joint deformities Neurologic: Strengtg 5/5 all extremities, no gross sensory deficits Results - Labs CBC & BMP: 12/18/16 03:06 12/18/16 03:06 - Impressions (1) Seizure disorder Status: Chronic Assessment and plan: CT negative. CBC/BMP. Prn ativan. Seizure precautions. Current Visit: No (2) Hypertension Status: Acute Current Visit: No (3) Status post total right knee replacement Status: Chronic Assessment and plan: Pt. had total right knee replacement. PT/OT will be consulted for strengthening pending recs from neuro about patient's status. Current Visit: No (4) Dementia Status: Chronic Assessment and plan: Pt. will be started on home meds once verified. Current Visit: No Qualifiers: Dementia type: Alzheimer's disease Alzheimer's disease onset: late-onset Dementia behavioral disturbance: without behavioral disturbance Qualified Code (s): G30.1 - Alzheimer's disease with late onset; F02.80 - Dementia in other diseases classified elsewhere without behavioral disturbance (5) Type 2 diabetes mellitus Status: Chronic Assessment and plan: Accuchecks ACHS. Cont SSI. Current Visit: No (6) Tension Headache NSAIDS prn Specialty Discharge - Follow Up or Referrals Follow up with: Fadi Paz MD [Physician] - 1 Month
[2016-12-21] MEDS: levETIRAcetam 500 MG TABLET PO SCH (20:50)
[2016-12-21] MEDS: ZALEPLON 5 MG CAPSULE PO PRN (20:57)
[2016-12-22] MEDS: INSULIN LISPRO 100 UNIT/ML SUBCUT SCH ×3 (07:50→17:06)
[2016-12-22] MEDS: OXcarbazepine 300 MG TABLET PO SCH (08:21)
[2016-12-22] MEDS: LISINOPRIL 20 MG TABLET PO SCH (08:21)
[2016-12-22] MEDS: hydrALAZINE 20 MG/1 ML VIAL IV PRN (08:21)
[2016-12-22] MEDS: levETIRAcetam 500 MG TABLET PO SCH (08:22)
[2016-12-22] MEDS: LACTULOSE 20 GM/30 ML UDCUP PO SCH (08:22)
[2016-12-22] MEDS: CARVEDILOL 12.5 MG TABLET PO SCH (08:22)
[2016-12-22] MEDS: ASPIRIN EC 81 MG TABLET PO SCH (08:22)
[2016-12-22] MEDS: amLODIPine 5 MG TABLET PO SCH (08:22)
[2016-12-22] MEDS ORDERED: SODIUM PHOSPHATE ENEMA 133 ML BOTTLE RECTAL ONE (11:48)
--- NOTE | 2016-12-22 13:25 | Discharge Summary ---
Hospital Course - Hospital Course Hospital Course: The patient was admitted to the hospital with shaking spells consistent with epilepsy. The patient had a EEG which confirmed the epilepsy. Dr. Sarai Heredia recommended changes to antiseizure medications which were successful in extinguishing the patient's tremor. The patient's strength improved over the next 2 days. The patient is now returned to baseline function is ready for discharge home to his daughter. The patient's daughter Agnieszka will care for him at home as the patient's has been taken to [place] for treatment of brain hemorrhage. On the date of discharge, chest is clear heart has regular rate and rhythm. 34 minutes were required to prepare discharge and coordinate care with case therapist. Tobacco screening was performed and the patient was found to be a former smoker. He was given 4 minutes encouragement to continue tobacco cessation. - Time spent with patient Time with patient DS: Greater than 30 minutes Diagnosis - Discharge Diagnosis (1) Seizure Status: Chronic (2) Altered mental status Status: Resolved (3) Dementia Status: Chronic (4) Diabetes mellitus Status: Acute Specialty Discharge - Follow Up or Referrals Follow up with: Fadi Paz MD [Physician] - 1 Month Discharge Plan - Discharge Data Disposition: Disch To Home/Self Care Condition at Discharge: Stable Discharge Diet: regular diet Activity: resume usual activities as tolerated - Discharge Medications New Lactulose Liquid [Chronulac] 20 gm PO BID #100 levETIRAcetam TAB [Keppra Tab] 1,000 mg PO BID #120 tablet Continue glipiZIDE [Glucotrol] 5 mg PO AC BREAKFAST Carvedilol [Coreg] 12.5 mg PO BID #60 tablet QUEtiapine [SEROquel] 25 mg PO BID Furosemide Tab [Lasix Tab] 20 mg PO BID DIURETIC Meloxicam [Mobic] 7.5 mg PO DAILY Hydrocodone/Acetaminophen [Hydrocodon-Acetaminoph 7.5-325] 1 each PO Q12HR PRN PRN Reason: Pain Moderate (4-7) Oxybutynin Chloride [Oxybutynin Chloride ER] 5 mg PO DAILY LORazepam TAB [Ativan Tab] 0.5 mg PO BID #20 tablet amLODIPine [Norvasc] 5 mg PO DAILY Donepezil HCl 10 mg PO BEDTIME OXcarbazepine [Trileptal] 300 mg PO BID Aspirin EC Tab 81 mg PO QAM Discontinued Zolpidem Tartrate [Ambien] 10 mg PO BEDTIME Lisinopril 20 mg PO DAILY Trazodone HCl 100 mg PO BEDTIME levETIRAcetam [Levetiracetam] 500 mg PO BID - Follow Up or Referral Follow Up: Fadi Paz MD [Physician] - 1 Month - Forms/Instructions Exam - Constitutional Vitals: Period Temp Pulse Resp BP Sys/Miles Pulse Ox Last 24 Hr 97.1 F-98.7 F 62-85 16-22 102-174/57-105 96-100 Discharge Results Labs on day of discharge: Labs from last 24 hours 12/22/16 12/22/16 12/21/16 12:16 07:44 20:01 POC Glucose 147 H 100 187 H DS: Provider Date of admission: 12/16/16 13:57 Primary care physician: Michael Zamora MD Attending physician on admission: Sania Paulino MD Consults: 12/16/16 16:17 Consult to Physician [CONS] Routine Comment: Consulting Provider: Fadi Paz 12/18/16 13:40 Consult to Physical Therapy [CONS] Routine Reason for Physical Therapy: Evaluate and Treat Discharging clinician: Jarvis Ramirez MD
[2016-12-22 16:20] VITALS: BP 154/89
== END 2016-12-22 17:51 | disposition home health service (06) | DRG 101 ==
LOC: EDUNIT# → EDBD → N.ED 11:11 → SUATTDRO 13:57 → N.EDINP 13:57 → N.CC 16:00 → N.4E 12-17 20:01
PROVIDERS: ADMIT Internal Medicine; ATTEND Internal Medicine

== ENCOUNTER 2017-04-23 06:56 | Inpatient (IN) ==
[2017-04-23] MEDS ORDERED: SODIUM CHLORIDE 0.9% 1,000 ML IV STA (07:12)
[2017-04-23 07:42] LABS: Basophils # 0.1 10*3/uL (0.0-0.2); Basophils % 0.9 % (0.0-0.8); Eosinophils # 0.1 10*3/uL (0.0-0.87); Eosinophils % 1.2 % (0.00-10.9); Hematocrit 40.2 VOL% (42.0-52.0); Hemoglobin 13.1 GM/DL (14.0-18.0); Immature Granulocytes % 0.8 %; Immature Granulocytes Absolute 0.05 #; Lymphocytes # 2.5 10*3/uL (1.4-4.0); Lymphocytes % 37.8 % (21.2-54.2); Mean Corpuscular HGB Conc 32.6 GM/DL (32-36); Mean Corpuscular Hemoglobin 26 PG (27-34); Mean Corpuscular Volume 80.7 FL (87-102); Mean Platelet Volume 10.5 FL (9.6-12.0); Monocytes # 0.6 10*3/uL (0.11-0.8); Monocytes % 9.7 % (1.7-12.7); Neutrophils # 3.2 10*3/uL (1.4-7.4); Neutrophils % 49.6 % (38.7-73.9); Platelet Count 209 T/CUMM (130-400); Red Blood Count 4.98 MC/CUMM (3.8-5.5); Red Cell Distribution Width 15.4 % (9.3-17.3); White Blood Count 6.5 T/CUMM (4-12)
[2017-04-23 07:50] LABS: PT Patient Result 10.5 SECS; Partial Thromboplastin Time 27.8 SECS (0-40)
[2017-04-23 08:09] LABS: Apearance,Urine CLEAR (Clear); Bilirubin,Urine Negative (Negative); Blood, Urine Negative (Negative); Glucose,Urine (UA) 150 mg/dL (Negative); Hyaline Casts,Urine 2 /LPF (0-3); Ketones,Urine Negative (Negative); Mucus,Urine Occasional /LPF (Occasional); Nitrite,Urine Negative (Negative); Protein,Urine Negative; RBC,Urine 1 /HPF (0-4); Urine Color Yellow (Yellow); Urine Specific Gravity 1.017 (1.001-1.035); Urine Urobilinogen < 2.0 EU/DL (0.2-1.0); WBC,Urine 1 /HPF (0-6)
[2017-04-23 08:18] LABS: Alanine Aminotransferase 70 U/L (16-61); Albumin 3.6 G/DL (3.4-5.0); Alkaline Phosphatase 179 U/L (45-117); Aspartate Amino Transferase 41 U/L (0-37); Bilirubin,Total < 0.39 MG/DL (0.2-1.0); Blood Urea Nitrogen 13 MG/DL (7-18); Calcium 8.7 MG/DL (8.5-10.1); Glucose 152 MG/DL (74-106); Osmolality,Calculated 283.3 MOS/KG (273-304); Potassium 3.5 MMOL/L (3.5-5.1); Sodium 141 MMOL/L (136-145); Total Protein 7.8 G/DL (6.4-8.3)
[2017-04-23 08:23] LABS: Ammonia 31 UMOL/L (11-32)
[2017-04-23] MEDS ORDERED: LEVOFLOXACIN INJ 500 MG in PREMIX 1 EACH IV STA (08:23)
[2017-04-23] MEDS ORDERED: LEVOFLOXACIN INJ 100 ML IV ONE (08:32)
[2017-04-23] MEDS ORDERED: ACETAMINOPHEN 325 MG TABLET PO PRN (09:50)
[2017-04-23] MEDS ORDERED: DEXTROSE 50% 25 GM/50 ML VIAL IV PRN (09:50)
[2017-04-23] MEDS ORDERED: GLUCAGON 1 MG VIAL IM PRN (09:50)
[2017-04-23] MEDS ORDERED: ONDANSETRON 4 MG/2 ML VIAL IV PRN (09:50)
[2017-04-23] MEDS ORDERED: SODIUM CHLORIDE 0.9% 1,000 ML IV SCH (10:00)
[2017-04-23] MEDS ORDERED: LORazepam 1 MG TABLET PO STA (10:14)
[2017-04-23] MEDS ORDERED: LORazepam 1 MG TABLET ONE (10:23)
[2017-04-23] MEDS ORDERED: BUTALBITAL/ACETAMIN/CAFFEINE 50-325-40 MG TABLET PO PRN (12:59)
[2017-04-23] MEDS: INSULIN LISPRO 100 UNIT/ML SUBCUT SCH ×3 (13:20→21:01)
[2017-04-23] MEDS: ALBUTEROL/IPRATROPIUM 3 ML NEB RESP TX SCH ×2 (13:27→20:02)
[2017-04-23] MEDS ORDERED: hydrALAZINE 20 MG/1 ML VIAL IV PRN (13:48)
[2017-04-23] MEDS ORDERED: CARVEDILOL 12.5 MG TABLET PO SCH (14:00)
[2017-04-23] MEDS: SODIUM CHLORIDE 0.45% 1,000 ML IV SCH (14:22)
[2017-04-23] MEDS: LORazepam 0.5 MG TABLET PO SCH ×2 (14:23→20:59)
[2017-04-23] MEDS: amLODIPine 10 MG TABLET PO SCH (14:23)
[2017-04-23] MEDS: LISINOPRIL 10 MG TABLET PO SCH ×2 (14:23→21:00)
[2017-04-23] MEDS: FUROSEMIDE 20 MG TABLET PO SCH (16:38)
[2017-04-23] MEDS: LORazepam 2 MG/1 ML VIAL IV PRN ×2 (18:02→22:17)
[2017-04-23] MEDS: LACTULOSE 20 GM/30 ML UDCUP PO SCH (20:58)
[2017-04-23] MEDS: DONEPEZIL 10 MG TABLET PO SCH (20:59)
[2017-04-23] MEDS: levETIRAcetam 500 MG TABLET PO SCH (20:59)
[2017-04-23] MEDS: QUEtiapine 25 MG TABLET PO SCH (20:59)
[2017-04-23] MEDS: OXcarbazepine 300 MG TABLET PO SCH (20:59)
[2017-04-23] MEDS: glipiZIDE 5 MG TABLET PO SCH (21:00)
[2017-04-24] MEDS: ALBUTEROL/IPRATROPIUM 3 ML NEB RESP TX SCH ×4 (01:18→19:22)
[2017-04-24 07:38] LABS: Basophils % 0.6 % (0.0-0.8); Eosinophils # 0.1 10*3/uL (0.0-0.87); Hematocrit 37.7 VOL% (42.0-52.0); Hemoglobin 12.5 GM/DL (14.0-18.0); Immature Granulocytes Absolute 0.06 #; Lymphocytes # 2.5 10*3/uL (1.4-4.0); Lymphocytes % 40.5 % (21.2-54.2); Mean Corpuscular HGB Conc 33.2 GM/DL (32-36); Mean Corpuscular Hemoglobin 27 PG (27-34); Mean Corpuscular Volume 80.4 FL (87-102); Mean Platelet Volume 11.2 FL (9.6-12.0); Monocytes # 0.7 10*3/uL (0.11-0.8); Monocytes % 11.9 % (1.7-12.7); Neutrophils # 2.8 10*3/uL (1.4-7.4); Platelet Count 205 T/CUMM (130-400); Red Blood Count 4.69 MC/CUMM (3.8-5.5); Red Cell Distribution Width 15.4 % (9.3-17.3); White Blood Count 6.2 T/CUMM (4-12)
[2017-04-24 08:05] LABS: Albumin 3.2 G/DL (3.4-5.0); Calcium 9.1 MG/DL (8.5-10.1); Osmolality,Calculated 282.1 MOS/KG (273-304); Potassium 3.7 MMOL/L (3.5-5.1); Total Protein 6.7 G/DL (6.4-8.3)
[2017-04-24] MEDS: OXYBUTYNIN XL 5 MG TABLET PO SCH (09:12)
[2017-04-24] MEDS: QUEtiapine 25 MG TABLET PO SCH ×2 (09:12→21:53)
[2017-04-24] MEDS: amLODIPine 10 MG TABLET PO SCH (09:12)
[2017-04-24] MEDS: OXcarbazepine 300 MG TABLET PO SCH ×2 (09:12→21:52)
[2017-04-24] MEDS: PANTOPRAZOLE 40 MG TABLET PO SCH (09:12)
[2017-04-24] MEDS: levETIRAcetam 500 MG TABLET PO SCH ×2 (09:12→21:53)
[2017-04-24] MEDS: FUROSEMIDE 20 MG TABLET PO SCH ×2 (09:13→16:55)
[2017-04-24] MEDS: MELOXICAM 7.5 MG TABLET PO SCH (09:13)
[2017-04-24] MEDS: INSULIN LISPRO 100 UNIT/ML SUBCUT SCH ×4 (09:13→21:52)
[2017-04-24] MEDS: LORazepam 0.5 MG TABLET PO SCH ×3 (09:13→21:54)
[2017-04-24] MEDS: ASPIRIN EC 81 MG TABLET PO SCH (09:13)
[2017-04-24] MEDS: glipiZIDE 5 MG TABLET PO SCH ×2 (09:13→21:53)
[2017-04-24] MEDS: LISINOPRIL 10 MG TABLET PO SCH ×2 (09:13→21:53)
[2017-04-24] MEDS: LACTULOSE 20 GM/30 ML UDCUP PO SCH ×2 (09:13→21:52)
[2017-04-24] MEDS: LEVOFLOXACIN INJ 500 MG in PREMIX 1 EACH IV SCH (09:16)
[2017-04-24] MEDS: SODIUM CHLORIDE 0.45% 1,000 ML IV SCH (13:10)
[2017-04-24] MEDS: ENOXAPARIN 40 MG/0.4 ML SYRINGE SUBCUT SCH (16:55)
[2017-04-24] MEDS: DONEPEZIL 10 MG TABLET PO SCH (21:53)
[2017-04-25] MEDS: ALBUTEROL/IPRATROPIUM 3 ML NEB RESP TX SCH ×4 (01:38→19:43)
[2017-04-25] MEDS: INSULIN LISPRO 100 UNIT/ML SUBCUT SCH ×3 (07:09→17:21)
[2017-04-25] MEDS: LACTULOSE 20 GM/30 ML UDCUP PO SCH (08:45)
[2017-04-25] MEDS: FUROSEMIDE 20 MG TABLET PO SCH ×2 (08:45→15:14)
[2017-04-25] MEDS: MELOXICAM 7.5 MG TABLET PO SCH (08:45)
[2017-04-25] MEDS: LORazepam 0.5 MG TABLET PO SCH ×2 (08:46→14:33)
[2017-04-25] MEDS: QUEtiapine 25 MG TABLET PO SCH (08:46)
[2017-04-25] MEDS: amLODIPine 10 MG TABLET PO SCH (08:46)
[2017-04-25] MEDS: glipiZIDE 5 MG TABLET PO SCH (08:46)
[2017-04-25] MEDS: PANTOPRAZOLE 40 MG TABLET PO SCH (08:46)
[2017-04-25] MEDS: LISINOPRIL 10 MG TABLET PO SCH (08:46)
[2017-04-25] MEDS: levETIRAcetam 500 MG TABLET PO SCH (08:46)
[2017-04-25] MEDS: OXYBUTYNIN XL 5 MG TABLET PO SCH (08:46)
[2017-04-25] MEDS: OXcarbazepine 300 MG TABLET PO SCH (08:46)
[2017-04-25] MEDS: ASPIRIN EC 81 MG TABLET PO SCH (08:46)
[2017-04-25] MEDS: LEVOFLOXACIN INJ 500 MG in PREMIX 1 EACH IV SCH ×2 (08:47→09:43)
[2017-04-25] MEDS: SODIUM CHLORIDE 0.45% 1,000 ML IV SCH (08:50)
[2017-04-25] MEDS: ENOXAPARIN 40 MG/0.4 ML SYRINGE SUBCUT SCH (17:21)
[2017-04-25 21:24] VITALS: BP 121/79
== END 2017-04-25 19:00 | disposition home or self-care (01) | DRG 195 ==
LOC: N.ED 06:56 → N.EDINP 09:15 → N.5E 12:42
PROVIDERS: ADMIT Internal Medicine; ATTEND Internal Medicine

== ENCOUNTER 2017-11-27 09:56 | Inpatient (IN) ==
[2017-12-07 12:28] VITALS: BP 154/83
== END 2017-12-07 12:15 | disposition swing bed (61) | DRG 684 ==
LOC: N.ED 09:56 → N.EDINP 12:38 → SUATTDRO 12:38 → N.5E 14:48 → N.CC 11-28 09:16 → N.TELES 12-02 16:00
PROVIDERS: ADMIT Internal Medicine Geriatric Medicine; ATTEND Internal Medicine

== ENCOUNTER 2018-12-14 08:07 | Inpatient (IN) ==
[2018-12-14] MEDS ORDERED: ONDANSETRON 4 MG/2 ML VIAL IV STA (09:15)
[2018-12-14] MEDS ORDERED: MORPHINE 4 MG/1 ML VIAL IV STA (09:15)
[2018-12-14] MEDS ORDERED: FAMOTIDINE 20 MG/2 ML VIAL IV STA (09:17)
[2018-12-14 09:41] LABS: Basophils % 0.8 % (0.0-0.8); Eosinophils % 0.8 % (0.00-10.9); Hemoglobin 11.4 GM/DL (14.0-18.0); Immature Granulocytes % 0.4 %; Immature Granulocytes Absolute 0.02 #; Lymphocytes # 1.5 10*3/uL (1.4-4.0); Lymphocytes % 32.6 % (21.2-54.2); Mean Corpuscular HGB Conc 30.8 GM/DL (32-36); Mean Platelet Volume 9.8 FL (9.6-12.0); Monocytes % 10.4 % (1.7-12.7); Platelet Count 236 T/CUMM (130-400); Red Blood Count 4.46 MC/CUMM (3.8-5.5); Red Cell Distribution Width 14.7 % (9.3-17.3); White Blood Count 4.7 T/CUMM (4-12)
[2018-12-14 10:01] LABS: Alanine Aminotransferase 20 U/L (16-61); Albumin 3.4 G/DL (3.4-5.0); Alkaline Phosphatase 152 U/L (45-117); Amylase 266 U/L (25-115); Aspartate Amino Transferase 20 U/L (0-37); Bilirubin,Total < 0.39 MG/DL (0.2-1.0); Blood Urea Nitrogen 17 MG/DL (7-18); Calcium 8.9 MG/DL (8.5-10.1); Glucose 146 MG/DL (74-106); Osmolality,Calculated 290.8 MOS/KG (273-304); Total Protein 7.2 G/DL (6.4-8.3)
[2018-12-14 11:03] LABS: Apearance,Urine CLEAR (Clear); Bilirubin,Urine Negative (Negative); Blood, Urine Negative (Negative); Glucose,Urine (UA) Negative (Negative); Ketones,Urine Negative (Negative); Mucus,Urine Occasional /LPF (Occasional); Nitrite,Urine Negative (Negative); Protein,Urine Negative; RBC,Urine <1 /HPF (0-4); Squamous Epithelial Cell,Urine Occasional /HPF (0-10); Urine Color Yellow (Yellow); Urine Specific Gravity 1.017 (1.001-1.035); Urine Urobilinogen < 2.0 EU/DL (0.2-1.0); WBC,Urine 1 /HPF (0-6)
[2018-12-14] MEDS ORDERED: ONDANSETRON 4 MG/2 ML VIAL IV PRN (13:25)
[2018-12-14] MEDS ORDERED: DEXTROSE 50% 25 GM/50 ML VIAL IV PRN (13:56)
[2018-12-14] MEDS ORDERED: GLUCAGON 1 MG VIAL IM PRN (13:56)
[2018-12-14] MEDS: ENOXAPARIN 40 MG/0.4 ML SYRINGE SUBCUT SCH (14:23)
[2018-12-14] MEDS: SODIUM CHLORIDE 0.9% 1,000 ML IV SCH ×2 (14:23→23:12)
[2018-12-14] MEDS: hydrALAZINE 20 MG/1 ML VIAL IV PRN (16:28)
[2018-12-14] MEDS ORDERED: PHENOL 1.4% THROAT SPRAY 177 ML BOTTLE PO PRN (17:18)
[2018-12-14] MEDS: INSULIN REGULAR 100 UNIT/ML SUBCUT SCH (18:21)
[2018-12-14] MEDS: ACETAMINOPHEN 325 MG TABLET PO PRN (18:39)
[2018-12-14] MEDS: FAMOTIDINE 20 MG/2 ML VIAL IV SCH (20:54)
[2018-12-14] MEDS: OXYMETAZOLINE 0.05% NASAL SPRAY 15 ML BOTTLE BOTH NARES PRN (23:11)
[2018-12-15] MEDS: INSULIN REGULAR 100 UNIT/ML SUBCUT SCH ×4 (00:13→18:00)
[2018-12-15] MEDS: MORPHINE 4 MG/1 ML VIAL IV PRN ×2 (00:41→08:21)
[2018-12-15] MEDS: OXYMETAZOLINE 0.05% NASAL SPRAY 15 ML BOTTLE BOTH NARES PRN (00:44)
[2018-12-15] MEDS: hydrALAZINE 20 MG/1 ML VIAL IV PRN (05:09)
[2018-12-15 05:43] LABS: Basophils # 0.1 10*3/uL (0.0-0.2); Basophils % 0.6 % (0.0-0.8); Eosinophils % 0.3 % (0.00-10.9); Hematocrit 39.6 VOL% (42.0-52.0); Hemoglobin 12.2 GM/DL (14.0-18.0); Immature Granulocytes % 0.4 %; Immature Granulocytes Absolute 0.04 #; Lymphocytes % 30.3 % (21.2-54.2); Mean Corpuscular HGB Conc 30.8 GM/DL (32-36); Mean Platelet Volume 10.1 FL (9.6-12.0); Neutrophils % 58.4 % (38.7-73.9); Platelet Count 260 T/CUMM (130-400); Red Blood Count 4.83 MC/CUMM (3.8-5.5); Red Cell Distribution Width 14.6 % (9.3-17.3); White Blood Count 9.8 T/CUMM (4-12)
[2018-12-15 06:03] LABS: Albumin 3.9 G/DL (3.4-5.0); Bilirubin,Total 0.9 MG/DL (0.2-1.0); Calcium 9.6 MG/DL (8.5-10.1); Osmolality,Calculated 283.3 MOS/KG (273-304); Total Protein 7.9 G/DL (6.4-8.3)
[2018-12-15 06:05] LABS: % Iron Saturation 23.3 % (18-50); Ferritin 67.4 ng/ml (26-388)
[2018-12-15] MEDS ORDERED: cefOXitin 2,000 MG in SYRINGE 1 EACH IV ONE ×2 (07:16→07:30)
[2018-12-15] MEDS: FAMOTIDINE 20 MG/2 ML VIAL IV SCH ×2 (08:25→20:39)
[2018-12-15] MEDS: ENOXAPARIN 40 MG/0.4 ML SYRINGE SUBCUT SCH (08:25)
[2018-12-15] MEDS: SODIUM CHLORIDE 0.9% 1,000 ML IV SCH ×2 (08:28→18:00)
[2018-12-15] MEDS: CARBIDOPA/LEVODOPA 25-100 MG TABLET PO SCH ×2 (17:03→20:39)
[2018-12-15] MEDS: DONEPEZIL 10 MG TABLET PO SCH (20:39)
[2018-12-15] MEDS: MELATONIN 3 MG TABLET PO SCH (20:39)
[2018-12-15] MEDS: levETIRAcetam 250 MG TABLET PO SCH (20:39)
[2018-12-15] MEDS: busPIRone 15 MG TABLET PO SCH (20:39)
[2018-12-15] MEDS: CILOSTAZOL 100 MG TABLET PO SCH (20:39)
[2018-12-15] MEDS: OXcarbazepine 300 MG TABLET PO SCH (20:40)
[2018-12-15] MEDS: URSODIOL 300 MG CAPSULE PO SCH (20:40)
[2018-12-16] MEDS: INSULIN REGULAR 100 UNIT/ML SUBCUT SCH ×4 (01:09→18:39)
[2018-12-16] MEDS: SODIUM CHLORIDE 0.9% 1,000 ML IV SCH ×2 (02:00→08:36)
[2018-12-16 05:23] LABS: Basophils # 0.1 10*3/uL (0.0-0.2); Basophils % 0.8 % (0.0-0.8); Eosinophils # 0.1 10*3/uL (0.0-0.87); Eosinophils % 0.8 % (0.00-10.9); Hemoglobin 11.1 GM/DL (14.0-18.0); Immature Granulocytes % 0.3 %; Immature Granulocytes Absolute 0.03 #; Lymphocytes # 2.3 10*3/uL (1.4-4.0); Mean Corpuscular HGB Conc 30.8 GM/DL (32-36); Mean Corpuscular Volume 82.6 FL (87-102); Mean Platelet Volume 10.7 FL (9.6-12.0); Monocytes % 13.9 % (1.7-12.7); Neutrophils % 58.2 % (38.7-73.9); Platelet Count 234 T/CUMM (130-400); Red Blood Count 4.36 MC/CUMM (3.8-5.5); Red Cell Distribution Width 14.6 % (9.3-17.3); White Blood Count 8.6 T/CUMM (4-12)
[2018-12-16 05:56] LABS: Albumin 3.4 G/DL (3.4-5.0); Bilirubin,Total 0.5 MG/DL (0.2-1.0); Calcium 9.1 MG/DL (8.5-10.1); Osmolality,Calculated 283.1 MOS/KG (273-304); Total Protein 7.2 G/DL (6.4-8.3)
[2018-12-16] MEDS: FAMOTIDINE 20 MG/2 ML VIAL IV SCH ×2 (08:19→20:39)
[2018-12-16] MEDS: CARBIDOPA/LEVODOPA 25-100 MG TABLET PO SCH ×3 (08:19→20:41)
[2018-12-16] MEDS: URSODIOL 300 MG CAPSULE PO SCH ×2 (08:20→20:40)
[2018-12-16] MEDS: LOSARTAN 50 MG TABLET PO SCH (08:20)
[2018-12-16] MEDS: levETIRAcetam 250 MG TABLET PO SCH ×2 (08:21→20:40)
[2018-12-16] MEDS: busPIRone 15 MG TABLET PO SCH ×2 (08:22→20:39)
[2018-12-16] MEDS: OXYBUTYNIN XL 5 MG TABLET PO SCH (08:22)
[2018-12-16] MEDS: amLODIPine 10 MG TABLET PO SCH (08:22)
[2018-12-16] MEDS: CILOSTAZOL 100 MG TABLET PO SCH ×2 (08:28→20:40)
[2018-12-16] MEDS: ASPIRIN EC 81 MG TABLET PO SCH (08:33)
[2018-12-16] MEDS: ROSUVASTATIN 20 MG TABLET PO SCH (08:33)
[2018-12-16] MEDS: OXcarbazepine 300 MG TABLET PO SCH ×2 (10:09→20:40)
[2018-12-16] MEDS: LORazepam 1 MG TABLET PO PRN ×2 (12:50→20:39)
[2018-12-16] MEDS: ENOXAPARIN 40 MG/0.4 ML SYRINGE SUBCUT SCH (15:25)
[2018-12-16] MEDS ORDERED: POTASSIUM CHLORIDE 20 MEQ TABLET PO ONE (16:16)
[2018-12-16] MEDS: MELATONIN 3 MG TABLET PO SCH (20:39)
[2018-12-16] MEDS: DONEPEZIL 10 MG TABLET PO SCH (20:39)
[2018-12-17] MEDS: INSULIN REGULAR 100 UNIT/ML SUBCUT SCH ×4 (00:08→18:08)
[2018-12-17] MEDS: SODIUM CHLORIDE 0.9% 1,000 ML IV SCH ×3 (00:44→13:41)
[2018-12-17 05:21] LABS: Calcium 8.6 MG/DL (8.5-10.1); Osmolality,Calculated 287.6 MOS/KG (273-304)
[2018-12-17] MEDS ORDERED: BUPIVACAINE 0.25% /EPI 10 ML VIAL ONE (07:14)
[2018-12-17] MEDS ORDERED: LIDOCAINE 1%/EPI INJ 20 ML VIAL ONE (07:15)
[2018-12-17] MEDS ORDERED: TISSUE ADHESIVE 1 EACH APPLICATOR TOP ONE (07:15)
[2018-12-17] MEDS ORDERED: INDOCYANINE GREEN 25 MG VIAL IV ONE ×2 (07:17→07:30)
[2018-12-17] MEDS ORDERED: MEPERIDINE 25 MG/1 ML VIAL IV PRN (09:16)
[2018-12-17] MEDS ORDERED: ONDANSETRON 4 MG/2 ML VIAL IV PRN (09:16)
[2018-12-17] MEDS ORDERED: MEPERIDINE 25 MG/1 ML VIAL ONE (09:18)
[2018-12-17] MEDS ORDERED: ONDANSETRON 4 MG/2 ML VIAL ONE ×2 (09:18→09:22)
[2018-12-17] MEDS ORDERED: SEVOFLURANE 1 UNIT/15 MINUTE INH ONE (09:21)
[2018-12-17] MEDS ORDERED: PROPOFOL 200 MG/20 ML VIAL IV ONE (09:21)
[2018-12-17] MEDS ORDERED: fentaNYL 100 MCG/2 ML VIAL ONE (09:22)
[2018-12-17] MEDS ORDERED: DEXAMETHASONE 4 MG/1 ML VIAL ONE (09:22)
[2018-12-17] MEDS ORDERED: ACETAMINOPHEN 1,000 MG/100 ML VIAL IV ONE (09:22)
[2018-12-17] MEDS ORDERED: GLYCOPYRROLATE 0.4 MG/2 ML VIAL ONE (09:22)
[2018-12-17] MEDS ORDERED: NEOSTIGMINE 10 MG/10 ML VIAL ONE (09:22)
[2018-12-17] MEDS ORDERED: ROCURONIUM 100 MG/10 ML VIAL IV ONE (09:22)
[2018-12-17] MEDS: CARBIDOPA/LEVODOPA 25-100 MG TABLET PO SCH ×3 (11:21→20:42)
[2018-12-17] MEDS: URSODIOL 300 MG CAPSULE PO SCH ×2 (11:22→20:42)
[2018-12-17] MEDS: CILOSTAZOL 100 MG TABLET PO SCH ×2 (11:22→20:42)
[2018-12-17] MEDS: busPIRone 15 MG TABLET PO SCH ×2 (11:23→20:42)
[2018-12-17] MEDS: ROSUVASTATIN 20 MG TABLET PO SCH (11:23)
[2018-12-17] MEDS: levETIRAcetam 250 MG TABLET PO SCH ×2 (11:24→21:42)
[2018-12-17] MEDS: amLODIPine 10 MG TABLET PO SCH (11:25)
[2018-12-17] MEDS: OXYBUTYNIN XL 5 MG TABLET PO SCH (11:26)
[2018-12-17] MEDS: OXcarbazepine 300 MG TABLET PO SCH ×2 (11:26→20:42)
[2018-12-17] MEDS: LOSARTAN 50 MG TABLET PO SCH (11:27)
[2018-12-17] MEDS: FAMOTIDINE 20 MG/2 ML VIAL IV SCH ×2 (11:28→21:43)
[2018-12-17] MEDS: ASPIRIN EC 81 MG TABLET PO SCH ×2 (11:53→13:05)
[2018-12-17] MEDS: MORPHINE 4 MG/1 ML VIAL IV PRN (13:04)
[2018-12-17] MEDS: ENOXAPARIN 40 MG/0.4 ML SYRINGE SUBCUT SCH (13:05)
[2018-12-17] MEDS ORDERED: BISACODYL 5 MG TABLET PO PRN (15:21)
[2018-12-17] MEDS: ACETAMINOPHEN 325 MG TABLET PO PRN (20:41)
[2018-12-17] MEDS: MELATONIN 3 MG TABLET PO SCH (20:42)
[2018-12-17] MEDS: DONEPEZIL 10 MG TABLET PO SCH (20:42)
[2018-12-18] MEDS: INSULIN REGULAR 100 UNIT/ML SUBCUT SCH ×5 (01:07→21:01)
[2018-12-18] MEDS: SODIUM CHLORIDE 0.9% 1,000 ML IV SCH ×2 (03:01→16:05)
[2018-12-18] MEDS: FAMOTIDINE 20 MG/2 ML VIAL IV SCH ×2 (08:18→20:31)
[2018-12-18] MEDS: CARBIDOPA/LEVODOPA 25-100 MG TABLET PO SCH ×3 (08:20→20:31)
[2018-12-18] MEDS: ASPIRIN EC 81 MG TABLET PO SCH (08:20)
[2018-12-18] MEDS: LOSARTAN 50 MG TABLET PO SCH (08:20)
[2018-12-18] MEDS: URSODIOL 300 MG CAPSULE PO SCH ×2 (08:21→20:31)
[2018-12-18] MEDS: amLODIPine 10 MG TABLET PO SCH (08:21)
[2018-12-18] MEDS: busPIRone 15 MG TABLET PO SCH ×2 (08:21→20:31)
[2018-12-18] MEDS: CILOSTAZOL 100 MG TABLET PO SCH ×2 (08:21→20:32)
[2018-12-18] MEDS: OXcarbazepine 300 MG TABLET PO SCH ×2 (08:21→20:31)
[2018-12-18] MEDS: OXYBUTYNIN XL 5 MG TABLET PO SCH (08:21)
[2018-12-18] MEDS: ROSUVASTATIN 20 MG TABLET PO SCH (08:21)
[2018-12-18] MEDS: levETIRAcetam 250 MG TABLET PO SCH ×2 (09:15→20:31)
[2018-12-18] MEDS: ENOXAPARIN 40 MG/0.4 ML SYRINGE SUBCUT SCH (13:06)
[2018-12-18] MEDS: ACETAMINOPHEN 325 MG TABLET PO PRN (20:31)
[2018-12-18] MEDS: MELATONIN 3 MG TABLET PO SCH (20:31)
[2018-12-18] MEDS: DONEPEZIL 10 MG TABLET PO SCH (20:31)
[2018-12-19 04:41] LABS: Basophils % 0.4 % (0.0-0.8); Eosinophils # 0.1 10*3/uL (0.0-0.87); Eosinophils % 1.9 % (0.00-10.9); Hematocrit 27.8 VOL% (42.0-52.0); Hemoglobin 8.5 GM/DL (14.0-18.0); Immature Granulocytes % 0.4 %; Immature Granulocytes Absolute 0.03 #; Lymphocytes # 1.4 10*3/uL (1.4-4.0); Lymphocytes % 18.4 % (21.2-54.2); Mean Corpuscular HGB Conc 30.6 GM/DL (32-36); Mean Corpuscular Volume 84.2 FL (87-102); Mean Platelet Volume 10.3 FL (9.6-12.0); Neutrophils % 69.9 % (38.7-73.9); Platelet Count 175 T/CUMM (130-400); Red Cell Distribution Width 14.8 % (9.3-17.3); White Blood Count 7.4 T/CUMM (4-12)
[2018-12-19] MEDS: MORPHINE 4 MG/1 ML VIAL IV PRN (04:47)
[2018-12-19 05:02] LABS: Calcium 8.3 MG/DL (8.5-10.1); Osmolality,Calculated 287.8 MOS/KG (273-304)
[2018-12-19] MEDS: SODIUM CHLORIDE 0.9% 1,000 ML IV SCH (05:47)
[2018-12-19] MEDS ORDERED: POTASSIUM CHLORIDE 20 MEQ TABLET PO ONE (08:34)
[2018-12-19] MEDS: URSODIOL 300 MG CAPSULE PO SCH ×2 (08:44→20:47)
[2018-12-19] MEDS: CARBIDOPA/LEVODOPA 25-100 MG TABLET PO SCH ×3 (08:44→20:48)
[2018-12-19] MEDS: OXcarbazepine 300 MG TABLET PO SCH ×2 (08:44→20:47)
[2018-12-19] MEDS: levETIRAcetam 250 MG TABLET PO SCH ×2 (08:44→20:48)
[2018-12-19] MEDS: ROSUVASTATIN 20 MG TABLET PO SCH (08:45)
[2018-12-19] MEDS: FAMOTIDINE 20 MG/2 ML VIAL IV SCH ×2 (08:46→20:53)
[2018-12-19] MEDS: CILOSTAZOL 100 MG TABLET PO SCH ×2 (08:46→20:47)
[2018-12-19] MEDS: busPIRone 15 MG TABLET PO SCH ×2 (08:46→20:48)
[2018-12-19] MEDS: OXYBUTYNIN XL 5 MG TABLET PO SCH (08:46)
[2018-12-19] MEDS: INSULIN REGULAR 100 UNIT/ML SUBCUT SCH ×4 (08:55→21:31)
[2018-12-19] MEDS: POLYETHYLENE GLYCOL POWDER 17 GM PACK PO SCH (10:40)
[2018-12-19 12:02] LABS: Hematocrit 31.6 VOL% (42.0-52.0); Hemoglobin 9.7 GM/DL (14.0-18.0)
[2018-12-19] MEDS: LORazepam 1 MG TABLET PO PRN (12:53)
[2018-12-19] MEDS: ENOXAPARIN 40 MG/0.4 ML SYRINGE SUBCUT SCH (12:53)
[2018-12-19] MEDS: MELATONIN 3 MG TABLET PO SCH (20:47)
[2018-12-19] MEDS: ACETAMINOPHEN 325 MG TABLET PO PRN (20:49)
[2018-12-20 04:04] VITALS: BP 135/85
[2018-12-20 04:51] LABS: Basophils % 0.6 % (0.0-0.8); Eosinophils # 0.2 10*3/uL (0.0-0.87); Eosinophils % 2.8 % (0.00-10.9); Hemoglobin 8.9 GM/DL (14.0-18.0); Immature Granulocytes % 0.4 %; Immature Granulocytes Absolute 0.03 #; Lymphocytes # 1.5 10*3/uL (1.4-4.0); Lymphocytes % 22.6 % (21.2-54.2); Mean Corpuscular HGB Conc 30.7 GM/DL (32-36); Mean Corpuscular Volume 83.8 FL (87-102); Mean Platelet Volume 10.4 FL (9.6-12.0); Monocytes % 10.7 % (1.7-12.7); Neutrophils % 62.9 % (38.7-73.9); Platelet Count 195 T/CUMM (130-400); Red Blood Count 3.46 MC/CUMM (3.8-5.5); Red Cell Distribution Width 14.7 % (9.3-17.3); White Blood Count 6.8 T/CUMM (4-12)
[2018-12-20 05:18] LABS: Calcium 8.8 MG/DL (8.5-10.1); Osmolality,Calculated 287.7 MOS/KG (273-304)
[2018-12-20] MEDS: OXcarbazepine 300 MG TABLET PO SCH (08:54)
[2018-12-20] MEDS: ROSUVASTATIN 20 MG TABLET PO SCH (08:54)
[2018-12-20] MEDS: FAMOTIDINE 20 MG/2 ML VIAL IV SCH (08:54)
[2018-12-20] MEDS: OXYBUTYNIN XL 5 MG TABLET PO SCH (08:55)
[2018-12-20] MEDS: CILOSTAZOL 100 MG TABLET PO SCH (08:55)
[2018-12-20] MEDS: levETIRAcetam 250 MG TABLET PO SCH (08:55)
[2018-12-20] MEDS: URSODIOL 300 MG CAPSULE PO SCH (08:55)
[2018-12-20] MEDS: busPIRone 15 MG TABLET PO SCH (08:55)
[2018-12-20] MEDS: POLYETHYLENE GLYCOL POWDER 17 GM PACK PO SCH (08:55)
[2018-12-20] MEDS: CARBIDOPA/LEVODOPA 25-100 MG TABLET PO SCH ×2 (08:56→16:10)
[2018-12-20] MEDS: INSULIN REGULAR 100 UNIT/ML SUBCUT SCH ×2 (10:29→14:15)
[2018-12-20] MEDS ORDERED: LACTULOSE 20 GM/30 ML UDCUP PO PRN (10:30)
[2018-12-20] MEDS: ASPIRIN EC 81 MG TABLET PO SCH (11:21)
[2018-12-20] MEDS: ENOXAPARIN 40 MG/0.4 ML SYRINGE SUBCUT SCH (14:27)
== END 2018-12-20 15:14 | disposition swing bed (61) | DRG 418 ==
LOC: N.ED 08:07 → SUATTDRO 13:25 → N.2E 13:25
PROVIDERS: ADMIT Internal Medicine; ATTEND Internal Medicine

== ENCOUNTER 2019-07-21 08:02 | Observation (INO) ==
[2019-07-21] MEDS ORDERED: PHENYTOIN INJ 1,000 MG in SODIUM CHLORIDE 0.9% 100 ML IV STA (08:06)
[2019-07-21] MEDS ORDERED: PHENYTOIN 250 MG/5 ML VIAL IV ONE (08:23)
[2019-07-21 08:47] LABS: Basophils # 0.1 10*3/uL (0.0-0.2); Basophils % 0.8 % (0.0-0.8); Eosinophils # 0.1 10*3/uL (0.0-0.87); Hematocrit 36.3 VOL% (42.0-52.0); Hemoglobin 10.8 GM/DL (14.0-18.0); Immature Granulocytes % 0.5 %; Immature Granulocytes Absolute 0.03 #; Lymphocytes # 1.6 10*3/uL (1.4-4.0); Lymphocytes % 26.7 % (21.2-54.2); Mean Corpuscular HGB Conc 29.8 GM/DL (32-36); Mean Corpuscular Volume 83.8 FL (87-102); Mean Platelet Volume 10.6 FL (9.6-12.0); Monocytes % 10.3 % (1.7-12.7); Neutrophils % 60.7 % (38.7-73.9); Platelet Count 215 T/CUMM (130-400); Red Blood Count 4.33 MC/CUMM (3.8-5.5); Red Cell Distribution Width 15.1 % (9.3-17.3)
[2019-07-21 09:12] LABS: Alanine Aminotransferase 14 U/L (16-61); Albumin 3.1 G/DL (3.4-5.0); Alkaline Phosphatase 114 U/L (45-117); Aspartate Amino Transferase 14 U/L (0-37); Bilirubin,Total < 0.39 MG/DL (0.2-1.0); Blood Urea Nitrogen 7 MG/DL (7-18); Estimated Glom Filtration Rate 136 ML/MIN; Glucose 223 MG/DL (74-106); Osmolality,Calculated 279.7 MOS/KG (273-304); Total Protein 6.9 G/DL (6.4-8.3)
[2019-07-21 09:50] LABS: Apearance,Urine CLEAR (Clear); Bacteria,Urine Occasional /HPF (Few); Bilirubin,Urine Negative (Negative); Blood, Urine Negative (Negative); Glucose,Urine (UA) 150 mg/dL (Negative); Ketones,Urine Negative (Negative); Mucus,Urine Occasional /LPF (Occasional); Nitrite,Urine Negative (Negative); Protein,Urine Negative; RBC,Urine 2 /HPF (0-4); Urine Color Straw (Yellow); Urine Specific Gravity 1.012 (1.001-1.035); Urine Urobilinogen < 2.0 EU/DL (0.2-1.0); WBC,Urine <1 /HPF (0-6)
[2019-07-21 10:10] LABS: Barbiturates Screen,Urine Negative (Negative); Benzodiazepines Screen,Urine Positive (Negative); Cannabinoid Screen,Urine Negative (Negative); Opiate Screen,Urine Positive (Negative); Phencyclidine Screen,Urine Negative (Negative)
[2019-07-21] MEDS ORDERED: ACETAMINOPHEN 325 MG TABLET PO PRN (10:18)
[2019-07-21] MEDS ORDERED: ONDANSETRON 4 MG/2 ML VIAL IV PRN (10:18)
[2019-07-21] MEDS ORDERED: ALBUTEROL 2.5 MG/3 ML NEB RESP TX PRN (10:21)
[2019-07-21] MEDS ORDERED: GLUCAGON 1 MG VIAL IM PRN (10:29)
[2019-07-21] MEDS ORDERED: DEXTROSE 10% 250 ML BAG IV PRN (10:29)
[2019-07-21] MEDS ORDERED: amLODIPine 10 MG TABLET ONE (11:16)
[2019-07-21] MEDS ORDERED: carvediloL 3.125 MG TABLET ONE (11:16)
[2019-07-21] MEDS ORDERED: carvediloL 3.125 MG TABLET PO ONE (11:30)
[2019-07-21] MEDS: amLODIPine 10 MG TABLET PO SCH (11:59)
[2019-07-21] MEDS: DICYCLOMINE 10 MG CAPSULE PO SCH ×3 (14:10→21:28)
[2019-07-21] MEDS: INSULIN REGULAR 100 UNIT/ML SUBCUT SCH ×3 (15:14→21:26)
[2019-07-21] MEDS: CARBIDOPA/LEVODOPA 25-100 MG TABLET PO SCH ×2 (18:30→21:28)
[2019-07-21] MEDS: ROSUVASTATIN 20 MG TABLET PO SCH (18:30)
[2019-07-21] MEDS: OXcarbazepine 300 MG TABLET PO SCH (21:27)
[2019-07-21] MEDS: cilostazoL 50 MG TABLET PO SCH (21:27)
[2019-07-21] MEDS: ursodioL 300 MG CAPSULE PO SCH (21:28)
[2019-07-21] MEDS: traZODone 50 MG TABLET PO SCH (21:28)
[2019-07-21] MEDS: DONEPEZIL 10 MG TABLET PO SCH (21:28)
[2019-07-21] MEDS: carvediloL 6.25 MG TABLET PO SCH (21:28)
[2019-07-21] MEDS: busPIRone 15 MG TABLET PO SCH (21:28)
[2019-07-22 05:32] LABS: Basophils # 0.1 10*3/uL (0.0-0.2); Basophils % 0.8 % (0.0-0.8); Eosinophils # 0.1 10*3/uL (0.0-0.87); Eosinophils % 1.2 % (0.00-10.9); Hematocrit 39.7 VOL% (42.0-52.0); Immature Granulocytes % 0.5 %; Immature Granulocytes Absolute 0.03 #; Lymphocytes # 2.2 10*3/uL (1.4-4.0); Mean Corpuscular HGB Conc 30.2 GM/DL (32-36); Mean Corpuscular Volume 82.4 FL (87-102); Mean Platelet Volume 10.2 FL (9.6-12.0); Monocytes % 12.3 % (1.7-12.7); Neutrophils % 49.2 % (38.7-73.9); Platelet Count 234 T/CUMM (130-400); Red Blood Count 4.82 MC/CUMM (3.8-5.5); Red Cell Distribution Width 15.3 % (9.3-17.3)
[2019-07-22 05:48] LABS: Calcium 8.9 MG/DL (8.5-10.1); Osmolality,Calculated 281.3 MOS/KG (273-304)
[2019-07-22] MEDS ORDERED: NON-FORMULARY MEDICATION (Linaclotide [Linzess] 72 MCG) PO SCH (08:00)
[2019-07-22] MEDS ORDERED: PANTOPRAZOLE 40 MG TABLET PO SCH (09:00)
[2019-07-22] MEDS: PANTOPRAZOLE 40 MG TABLET PO SCH (09:21)
[2019-07-22] MEDS: INSULIN REGULAR 100 UNIT/ML SUBCUT SCH ×4 (09:21→20:36)
[2019-07-22] MEDS: amLODIPine 10 MG TABLET PO SCH (09:21)
[2019-07-22] MEDS: cilostazoL 50 MG TABLET PO SCH ×2 (09:22→20:37)
[2019-07-22] MEDS: carvediloL 6.25 MG TABLET PO SCH ×2 (09:22→20:28)
[2019-07-22] MEDS: busPIRone 15 MG TABLET PO SCH ×2 (09:22→20:28)
[2019-07-22] MEDS: ASPIRIN EC 81 MG TABLET PO SCH (09:23)
[2019-07-22] MEDS: CLOPIDOGREL 75 MG TABLET PO SCH (09:23)
[2019-07-22] MEDS: SERTRALINE 50 MG TABLET PO SCH (09:23)
[2019-07-22] MEDS: OXcarbazepine 300 MG TABLET PO SCH ×2 (09:23→20:37)
[2019-07-22] MEDS: CARBIDOPA/LEVODOPA 25-100 MG TABLET PO SCH ×3 (09:23→20:38)
[2019-07-22] MEDS: levETIRAcetam 500 MG TABLET PO SCH ×2 (09:23→20:37)
[2019-07-22] MEDS: DICYCLOMINE 10 MG CAPSULE PO SCH ×4 (09:24→20:28)
[2019-07-22] MEDS: levETIRAcetam 250 MG TABLET PO SCH ×2 (09:24→20:37)
[2019-07-22] MEDS: OXYBUTYNIN XL 5 MG TABLET PO SCH (09:34)
[2019-07-22] MEDS: ursodioL 300 MG CAPSULE PO SCH ×2 (09:36→20:28)
[2019-07-22] MEDS ORDERED: ALUMINUM/MAGNES/SIMETH MAX STR 30 ML UDCUP PO PRN (14:31)
[2019-07-22] MEDS: ROSUVASTATIN 20 MG TABLET PO SCH (18:15)
[2019-07-22] MEDS: traZODone 50 MG TABLET PO SCH (20:28)
[2019-07-22] MEDS: DONEPEZIL 10 MG TABLET PO SCH (20:28)
[2019-07-23 05:03] LABS: Basophils % 0.7 % (0.0-0.8); Eosinophils # 0.1 10*3/uL (0.0-0.87); Hematocrit 37.8 VOL% (42.0-52.0); Hemoglobin 11.8 GM/DL (14.0-18.0); Immature Granulocytes % 0.3 %; Immature Granulocytes Absolute 0.02 #; Lymphocytes # 2.3 10*3/uL (1.4-4.0); Lymphocytes % 38.9 % (21.2-54.2); Mean Corpuscular HGB Conc 31.2 GM/DL (32-36); Mean Corpuscular Volume 80.4 FL (87-102); Mean Platelet Volume 10.8 FL (9.6-12.0); Neutrophils % 46.1 % (38.7-73.9); Platelet Count 224 T/CUMM (130-400); Red Cell Distribution Width 15.3 % (9.3-17.3); White Blood Count 5.9 T/CUMM (4-12)
[2019-07-23 05:35] LABS: Calcium 8.9 MG/DL (8.5-10.1); Osmolality,Calculated 281.4 MOS/KG (273-304)
[2019-07-23 07:47] VITALS: BP 120/71
[2019-07-23] MEDS: carvediloL 6.25 MG TABLET PO SCH (09:03)
[2019-07-23] MEDS: ASPIRIN EC 81 MG TABLET PO SCH (09:03)
[2019-07-23] MEDS: CLOPIDOGREL 75 MG TABLET PO SCH (09:04)
[2019-07-23] MEDS: ursodioL 300 MG CAPSULE PO SCH (09:04)
[2019-07-23] MEDS: levETIRAcetam 250 MG TABLET PO SCH (09:04)
[2019-07-23] MEDS: PANTOPRAZOLE 40 MG TABLET PO SCH (09:04)
[2019-07-23] MEDS: DICYCLOMINE 10 MG CAPSULE PO SCH (09:04)
[2019-07-23] MEDS: levETIRAcetam 500 MG TABLET PO SCH (09:04)
[2019-07-23] MEDS: OXcarbazepine 300 MG TABLET PO SCH (09:04)
[2019-07-23] MEDS: amLODIPine 10 MG TABLET PO SCH (09:04)
[2019-07-23] MEDS: CARBIDOPA/LEVODOPA 25-100 MG TABLET PO SCH (09:05)
[2019-07-23] MEDS: cilostazoL 50 MG TABLET PO SCH (09:05)
[2019-07-23] MEDS: OXYBUTYNIN XL 5 MG TABLET PO SCH (09:05)
[2019-07-23] MEDS: busPIRone 15 MG TABLET PO SCH (09:05)
[2019-07-23] MEDS: SERTRALINE 50 MG TABLET PO SCH (09:06)
== END 2019-07-23 11:36 | disposition home or self-care (01) ==
LOC: EDBD → EDUNIT# → N.ED 08:02 → N.EDINP 08:02 → SUATTDRO 10:18 → N.EDINP 12:48 → N.4E 13:01
PROVIDERS: ADMIT Internal Medicine; ATTEND Emergency Medicine